=== PATIENT | male | born 1975 | race Caucasian/White ===

== ENCOUNTER 2020-01-01 21:33 | Emergency (ER) | payer MEDICAID, SELFPAY ==
[2020-01-01 22:15] VITALS: BP 148/80; PULSE 81; RESP 18; TEMP 35.7; O2SAT 97; BMI 22.9
--- NOTE | 2020-01-01 23:26 | XR_ITS ---
EXAMINATION: XR HAND, RIGHT CLINICAL INFORMATION: Swelling redness COMPARISON: None TECHNIQUE: Four views of the right hand. FINDINGS: No acute fracture or dislocation. No evidence of bony erosion. No soft tissue air. Alignment is within normal limits. IMPRESSION: No bony finding.
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
[2020-01-02] MEDS: cephALEXin 500 MG CAPSULE PO (00:39)
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
== END 2020-01-02 00:48 | disposition home or self-care (01) ==
PROVIDERS: Emergency Provider Student in an Organized Health Care Education/Training Program
DX: L03.113 Cellulitis of right upper limb (principal); M79.644 Pain in right finger(s); Z79.899 Other long term (current) drug therapy
CPT/HCPCS: 73130; 99283

== ENCOUNTER 2020-01-11 05:42 | Inpatient (IN) | payer MEDICAID, SELFPAY ==
[2020-01-11] VITALS (17 sets, daily range): BP systolic 107–158; BP diastolic 64–90; PULSE 68–107; RESP 16–20; TEMP 36.1–37.3; O2SAT 94–100; BMI 22.9; BMI 22.7
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
--- NOTE | 2020-01-11 06:04 | XR_ITS ---
EXAMINATION: XR HAND, RIGHT CLINICAL INFORMATION: Thumb swelling COMPARISON: Radiographs right hand 01/01/2020 TECHNIQUE: 3 views of the right hand are obtained. FINDINGS: There is mottled lytic defect involving the proximal to mid first distal phalanx with associated fracture. Finding is consistent with a pathologic fracture. The AP view shows metallic foreign body superficial palmar soft tissues from 6 x 10 mm in size. This is not seen on the other 2 views. The other 2 projections show only a bandage over this area. There is no gas tracking in the soft tissues. There is no dislocation. The remainder of the bony structures appear intact. Results called discussed with Dr. Shah in the Emergency Department at 0750 hours. XR/XR hand RT min 3V IMPRESSION: 1. Pathologic fracture first proximal phalanx. 2. Foreign body superficial palmar soft tissues thumb 6 x 10 mm on one projection.
[2020-01-11] MEDS: Lidocaine HCl 1 % 20 ML VIAL SUBCUT ×2 (06:15→12:00)
[2020-01-11] MEDS: Piperacillin Sodium/Tazobactam 4.5 GM in 0.9 % Sodium Chloride 100 ML IV (06:29)
[2020-01-11 06:37] LABS: MANUAL DIFF FLAG NO
[2020-01-11 06:43] LABS: Basophils Absolute Auto 0.1 X10*3/uL (0.0-0.2); Basophils Percent Auto 0.4 % (0-2); Eosinophils Absolute Auto 0.2 X10*3/uL (0.0-0.4); Eosinophils Percent Auto 1.1 % (0-4); Hematocrit 35.7 % (42-52); Hemoglobin 11.7 g/dl (14.0-18.0); Imm Gran Abs Auto 0.11 X10*3/uL (0.00-0.03); Imm Gran Pct Auto 0.8 % (0.0-0.4); Lymphocytes Absolute Auto 1.5 X10*3/uL (1.2-4.9); Mean Corpuscular HGB Conc 32.8 g/dl (31.0-36.0); Mean Corpuscular Hemoglobin 29.3 pg (27.0-33.0); Mean Corpuscular Volume 89.3 fL (80-98); Mean Platelet Volume 8.7 fL (9.4-12.4); Monocytes Absolute Auto 1.3 X10*3/uL (0.1-1.2); Monocytes Percent Auto 10.1 % (2-11); Neutrophils Absolute Auto 10.1 X10*3/uL (2.0-8.3); Neutrophils Percent Auto 76.6 % (45-73); Platelet Count 379 X10*3/uL (160-400); Red Cell Distribution Width 12.8 % (11.0-16.0); White Blood Count 13.2 X10*3/uL (4.8-10.8)
[2020-01-11 07:00] LABS: Lactic Acid 0.9 mmol/L (0.5-2.0)
[2020-01-11 07:02] LABS: Anion Gap 13 (12-20); Blood Urea Nitrogen 11 mg/dL (9-16); Calcium 8.7 mg/dL (8.4-10.2); Carbon Dioxide 30 mmol/L (22-29); Chloride 100 mmol/L (96-108); Creatinine Clr Calc Pharmacy 121.9; Estimated Glomerular Filt Rate > 60; Glucose Random 107 mg/dL (60-115); Potassium 4.3 mmol/l (3.3-5.1); Sodium 139 mmol/L (135-145)
[2020-01-11] MEDS: HYDROmorphone HCl 0.5 MG/0.5 ML SYRINGE IVPUSH (07:04)
[2020-01-11 09:04] LABS: SARS COV2 PCR INHOUSE NEGATIVE (Negative)
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
[2020-01-11] MEDS: vancomycin HCL 1,000 MG in 0.9 % Sodium Chloride 250 ML 180 MG IV (11:39)
--- NOTE | 2020-01-11 11:54 | PC.NURSE ---
Hand physician at bedside. Hopes to get patient in the OR for early afternoon.
[2020-01-11] MEDS: Piperacillin Sodium/Tazobactam 3.375 GM in 0.9 % Sodium Chloride 50 ML IV ×2 (12:56→17:53)
--- NOTE | 2020-01-11 13:45 | PC.NURSE ---
pt arrived to unit via stretcher. alert and oriented x3, amb to bed with no assistance. pt was told that he would be going to surgery at some point in the day around 3pm, but OR transport came to [place] pt shortly he after he arrived to unit. pt insisted on bringing his peters with him to OR, this RN and OR transporter both offered to store pt's peters in the security safe and pt refused stating i dont trust any of you, i'll just take it with me downstairs. all other belongings (clothes, jacket, shoes) in closet in pt room. booking manager SHERRY and clinical coordinator AMIRA mathias.
--- NOTE | 2020-01-11 13:48 | P.CONAN_ITS ---
HPI - Anesthesia Eval Consult details Narrative: 44 M w/ cellulitis pf i&d [facility] Past Medical History Medical History No known health problems Phalanx, proximal fracture of finger Functional capacity: independent ambulation Social History Social History Alcohol intake: former Smoking Status: Current every day smoker Packs Per Day: 0.5 Cigarettes Per Day: 10.0 Smoked in Last 30 Days: Yes Use of substances other than those prescribed or required for medical reasons: Yes Substance Use Type: Painkillers Last Used Substance: Hours (ago) Any prior treatment program specific to substance use: No Advance Directives: No Advance Directives Information Provided: No Meds Allergies Allergy/AdvReac Type Severity Reaction Status Date / Time No Known Allergies Allergy Unverified 12/03/19 19:38 [No Known Allergies*] Exam Exam Date and Time: January 11, 2020 1348 Height,Weight and Vital Signs: Height 5 ft 10 in Weight 72.575 kg Last Vital Signs Temp 98.0 F 01/11/20 12:37 Pulse 90 01/11/20 12:37 Resp 20 01/11/20 12:37 BP 158/84 H 01/11/20 12:37 Pulse Ox 100 01/11/20 12:37 Pertinent Lab Results Pertinent Lab Results: Laboratory Tests 01/11/20 01/11/20 01/11/20 06:24 06:24 06:24 WBC 13.2 H RBC 4.00 L Hgb 11.7 L Hct 35.7 L MCV 89.3 MCH 29.3 MCHC 32.8 RDW 12.8 Plt Count 379 MPV 8.7 L Immature Gran % (Auto) 0.8 H Neut % (Auto) 76.6 H Lymph % (Auto) 11.0 L [place] % (Auto) 10.1 Eos % (Auto) 1.1 Baso % (Auto) 0.4 Lymph # (Auto) 1.5 [place] # (Auto) 1.3 H Eos # (Auto) 0.2 Baso # (Auto) 0.1 Abs Immat Gran (auto) 0.11 H Absolute Neuts (auto) 10.1 H Absolute Nucleated RBC 0.000 Nucleated RBC % (auto) 0.0 Sodium 139 Potassium 4.3 Chloride 100 Carbon Dioxide 30 H Anion Gap 13 BUN 11 Creatinine 0.81 Estim Creat Clear Calc 121.9 Estimated GFR > 60 Random Glucose 107 Lactic Acid 0.9 Calcium 8.7 Coronavirus (PCR) 01/11/20 08:04 WBC RBC Hgb Hct MCV MCH MCHC RDW Plt Count MPV Immature Gran % (Auto) Neut % (Auto) Lymph % (Auto) [place] % (Auto) Eos % (Auto) Baso % (Auto) Lymph # (Auto) [place] # (Auto) Eos # (Auto) Baso # (Auto) Abs Immat Gran (auto) Absolute Neuts (auto) Absolute Nucleated RBC Nucleated RBC % (auto) Sodium Potassium Chloride Carbon Dioxide Anion Gap BUN Creatinine Estim Creat Clear Calc Estimated GFR Random Glucose Lactic Acid Calcium Coronavirus (PCR) NEGATIVE Airway Mallampati Class: I TM Dist: >3cm Neck ROM: Full Loose/Missing/Broken Teeth: No Heart: rrr Lungs: nl Assessment and Plan Assessment Anesthesia Assessment: Anesthesia Plan Discussed, Smoking Cess. Discussed and Chart Reviewed Final Anesthetic Review NPO: Yes ASA Class: II Final Preanesthetic Review: No Changes in Pt Med Stat, Meds/Allgs Chart Reviewed and Consent Obtained/Reviewed Patient Risk: Intermediate Procedure Risk: Low Anesthetic Plan Anesthetic Plan: GA and Regional Block (Infraclavicular) Disposition: Standard PACU
--- NOTE | 2020-01-11 14:19 | PC.NURSE ---
called lab for a type and screen and patient taken to or. recalled lab. lab to draw patient in or. [facility] mathias.
--- NOTE | 2020-01-11 15:26 | P.BOP_ITS ---
Brief Operative Note Date of procedure: 01/11/20 Pre-op diagnosis: 1. Right thumb distal phalanx osteomyelitis, flexor tenosyn ovitis Post-op diagnosis: same Procedure: 1. Right thumb incision and debridement 2. Right distal phalanx fracture and osteomyelitis debridement Implants: drain removed no new implants Surgeon: Alyssia Garza MD Anesthesia: MAC and regional Estimated blood loss (mL): 3.0 Tourniquet time (min): 25 Pathology: other (gramstain and cultures of tissue and bone) Condition: stable Disposition: floor
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
[2020-01-11] MEDS: Dextrose 5 % and 0.9 % NaCl 1,000 ML 100 ML IVCONT (17:57)
[2020-01-11] MEDS: 0.9 % Sodium Chloride Flush 3 ML SYRINGE IVFLUSH (17:57)
--- NOTE | 2020-01-11 18:41 | P.EN_ITS ---
Event Note Event Note: Attending Admission Note Patient seen and examined. Case discussed with Shu Sanchez NP. Agree with her history and physical. Pt seen and examined on the floor post-op this evening. Went to the OR from the ED for thumb infection -- s/p drainage. Remainder per H&P Plan IV vancomcyin/zosyn for now ID consult f/u wound cultures Orthopedic on board -- see their note; may need repeat I&D in a few days. d/w the patient at [facility] -- informed him of the long process ahead of him (at least a few more days in the hospital + 6 weeks iv antibiotics) and not to sign out AMA. He understands at this time.
[2020-01-11] MEDS: vancomycin HCL 1,000 MG in 0.9 % Sodium Chloride 250 ML 270 MG IV (22:59)
[2020-01-12] VITALS (7 sets, daily range): BP systolic 118–144; BP diastolic 60–84; PULSE 70–80; RESP 16–20; TEMP 36.4–36.8; O2SAT 95–100
[2020-01-12] MEDS: Piperacillin Sodium/Tazobactam 3.375 GM in 0.9 % Sodium Chloride 50 ML IV ×4 (00:13→18:48)
[2020-01-12] MEDS: 0.9 % Sodium Chloride Flush 3 ML SYRINGE IVFLUSH ×2 (00:14→16:13)
[2020-01-12] MEDS: Morphine Sulfate 4 MG/ML CARTRIDGE 3 MG IVPUSH ×4 (04:11→20:58)
[2020-01-12] MEDS: Dextrose 5 % and 0.9 % NaCl 1,000 ML 100 ML IVCONT (06:05)
[2020-01-12 06:35] LABS: MANUAL DIFF FLAG NO
[2020-01-12 07:09] LABS: Anion Gap 10 (12-20); Blood Urea Nitrogen 6 mg/dL (9-16); Carbon Dioxide 28 mmol/L (22-29); Chloride 105 mmol/L (96-108); Creatinine Clr Calc Pharmacy 128.9; Estimated Glomerular Filt Rate > 60; Glucose Random 118 mg/dL (60-115); Potassium 4.1 mmol/l (3.3-5.1); Sodium 139 mmol/L (135-145)
[2020-01-12 07:10] LABS: Basophils Percent Auto 0.4 % (0-2); Eosinophils Absolute Auto 0.3 X10*3/uL (0.0-0.4); Eosinophils Percent Auto 2.5 % (0-4); Hematocrit 34.4 % (42-52); Hemoglobin 11.4 g/dl (14.0-18.0); Imm Gran Abs Auto 0.04 X10*3/uL (0.00-0.03); Imm Gran Pct Auto 0.4 % (0.0-0.4); Lymphocytes Absolute Auto 1.9 X10*3/uL (1.2-4.9); Lymphocytes Percent Auto 18.6 % (20-40); Mean Corpuscular HGB Conc 33.1 g/dl (31.0-36.0); Mean Corpuscular Hemoglobin 29.8 pg (27.0-33.0); Mean Corpuscular Volume 89.8 fL (80-98); Mean Platelet Volume 9.1 fL (9.4-12.4); Monocytes Absolute Auto 1.1 X10*3/uL (0.1-1.2); Monocytes Percent Auto 10.2 % (2-11); Neutrophils Percent Auto 67.9 % (45-73); Platelet Count 389 X10*3/uL (160-400); Red Blood Count 3.83 X10*6/uL (4.60-5.80); Red Cell Distribution Width 13.2 % (11.0-16.0); White Blood Count 10.4 X10*3/uL (4.8-10.8)
[2020-01-12 07:24] LABS: Calcium 7.8 mg/dL (8.4-10.2)
[2020-01-12] MEDS: Nicotine 7 MG PATCH.TD24 TRANSDERMA (08:27)
--- NOTE | 2020-01-12 08:32 | HO.POSTANES ---
Post Anesthesia Evaluation Post Anesthesia Evaluation Vital Signs: Vital Signs Temp Pulse Resp BP Pulse Ox 01/12/20 08:00 97.9 F 77 18 126/75 100 01/12/20 04:11 20 01/12/20 04:00 97.5 F 77 18 144/62 H 97 01/11/20 23:53 98 F 68 18 111/64 98 Anesthesia: General Mental Status: Awake Pain Control: Satisfactory (Difficulty contrlooing pain throughoutthe night despite nerve block) Nausea/Vomiting: None Hydration: Adequate Anesthesia-Related Issues: No Anes. Related Issues
[2020-01-12] MEDS: oxyCODONE HCl Immed Release 5 MG TABLET PO ×2 (08:34→18:49)
--- NOTE | 2020-01-12 09:55 | P.PNOP_ITS ---
Subjective Subjective Principal diagnosis: Right thumb osteo/tenosynovitis Interval history: POD 1 s/p I&D right thumb No overnight events, patient states there is some discomfort but feeling better. He has splint intact. He voices his concern about being in the hospital for more than 2-3 days, states if that is the case he may leave. At this point he is cooperative and tolerating medication well. Physical Exam Vital Signs: Vital Signs: Vital Signs Temp Pulse Resp BP Pulse Ox 01/12/20 08:00 97.9 F 77 18 126/75 100 01/12/20 04:11 20 01/12/20 04:00 97.5 F 77 18 144/62 H 97 01/11/20 23:53 98 F 68 18 111/64 98 01/11/20 19:07 98.3 F 91 18 126/78 95 01/11/20 18:06 88 18 140/74 H 100 01/11/20 18:00 97.0 F 88 18 140/74 H 100 01/11/20 17:03 81 16 113/71 94 01/11/20 16:44 77 16 127/82 97 01/11/20 16:20 87 20 129/74 98 01/11/20 16:05 82 19 129/82 98 01/11/20 15:50 84 18 115/69 97 01/11/20 15:45 86 17 110/69 98 01/11/20 15:40 87 17 115/67 97 01/11/20 15:35 71 17 107/70 01/11/20 15:30 97.0 F 76 19 118/71 95 01/11/20 12:37 98.0 F 90 20 158/84 H 100 01/11/20 12:00 98.0 F 90 20 158/84 H 100 Body Mass Index 22.7 Extrem: Other: Right thumb erythema with incision intact with mild serousangenous drainage. Suture intact. Tenderness. Red line tracking just below the antecubital fossa. Progress Note: A&P Assessment and plan (1) Phalanx, proximal fracture of finger: Status: Acute (2) Osteomyelitis: Status: Acute Assessment and Plan: Splint removed and dressing changed. Clean bandage and splint applied. I spoke with Dr. Garza , the plan is to cont with IV abx and have ID consult. Will take to OR tomorrow for f/u I&D, he should be NPO after midnight tonight. (3) Tenosynovitis: Status: Acute Fall Risk Details Current Medications: Current Medications Generic Name Dose Route Start Last Admin Trade Name Freq PRN Reason Stop Dose Admin Acetaminophen 650 mg 01/11/20 15:42 Acetaminophen 325 Mg Tablet PO Q6H PRN Pain, Mild (Pain Scale 1-3) Vancomycin HCl 1,000 mg/ 270 mls @ 180 mls/hr 01/11/20 10:45 01/12/20 00:13 Sodium Chloride IV Infused Q12H LEANDRO Infusion Piperacillin Sod/Tazobactam 50 mls @ 100 mls/hr 01/11/20 12:00 01/12/20 07:41 Sod 3.375 gm/ Sodium Chloride IV Infused Q6H LEANDRO Infusion Dextrose/Sodium Chloride 1,000 mls @ 100 mls/hr 01/11/20 15:42 01/12/20 06:05 D5ns IVCONT 100 mls/hr .Q10H LEANDRO Administration Morphine Sulfate 3 mg 01/11/20 18:44 01/12/20 04:11 Morphine Sulfate 4 Mg/Ml Cartridge IVPUSH 3 mg Q4H PRN Administration Pain, Severe (Pain Scale 7-10) Nicotine 7 mg 01/12/20 09:00 01/12/20 08:27 Nicotine 7 Mg Patch.Td24 TRANSDERMA 7 mg DAILY LEANDRO Administration Ondansetron HCl 4 mg 01/11/20 13:50 Ondansetron Hcl 4 Mg/2 Ml Vial IVPUSH ONCE PRN Nausea and Vomiting Ondansetron HCl 4 mg 01/11/20 15:42 Ondansetron Hcl 4 Mg/2 Ml Vial IVPUSH Q8H PRN Nausea and Vomiting Oxycodone HCl 5 mg 01/11/20 15:42 01/12/20 08:34 Oxycodone Hcl Immed Release 5 Mg Tablet PO 5 mg Q6H PRN Administration Pain, Severe (Pain Scale 7-10) Pharmacy Consult 1 each 01/11/20 15:42 Consult Rx Perform Med Rec MISCELLANE ONCE PRN Consult order Sodium Chloride 3 ml 01/11/20 16:00 01/12/20 08:36 0.9 % Sodium Chloride Flush 3 Ml Syringe IVFLUSH Not Given QSHIFT [facility] Time Spent With Patient Time: Total time spent is greater than 50% in coordination of care (as documented) at patient's floor/unit and/or counseling patient: Time with patient: 15 - 24 minutes
[2020-01-12] MEDS: vancomycin HCL 1,000 MG in 0.9 % Sodium Chloride 250 ML 270 MG IV ×2 (10:26→23:05)
--- NOTE | 2020-01-12 13:01 | MHC.CM.PN ---
CM met with patient at the bedside who reports he lives alone and is independent. Patient does not have a HCP and declines filling one out today after education. Discussed discharge plan, patient will need 6 wks IV ABT. Patient agreeable to referrals to [facility], referrals made via allscripts. Patient and S.O. are teachable. CM will continue to follow patient for discharge needs.
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
[2020-01-12] MEDS: Lactulose 20 GM/30 ML SOLUTION 10 GM PO (16:13)
--- NOTE | 2020-01-12 23:10 | PC.NURSE ---
pt reported no bm for few days. Medicated with lactulose po today, still no bm. Positive BS, passing gas. Pt refused fleet enema. RN reported to dr grimes. Miralax and MOM ordered.
[2020-01-12] MEDS: Milk of Magnesia 30 ML ORAL.SUSP 15 ML PO (23:29)
[2020-01-12] MEDS: polyethylene glycoL 3350 17 GM POWD.PACK PO (23:29)
[2020-01-13] MEDS: Piperacillin Sodium/Tazobactam 3.375 GM in 0.9 % Sodium Chloride 50 ML IV ×2 (00:54→05:36)
[2020-01-13] MEDS: 0.9 % Sodium Chloride Flush 3 ML SYRINGE IVFLUSH (00:54)
[2020-01-13] MEDS: oxyCODONE HCl Immed Release 5 MG TABLET PO (01:19)
[2020-01-13] MEDS: Morphine Sulfate 4 MG/ML CARTRIDGE 3 MG IVPUSH (04:01)
[2020-01-13 07:35] VITALS: BP 128/71; PULSE 57; RESP 18; TEMP 36.2; O2SAT 99
--- NOTE | 2020-01-13 08:34 | MHC.CM.PN ---
at this time dc plan is to return home c vna and coram c iv abx's. cm to cont. to follow.
--- NOTE | 2020-01-13 09:08 | PC.NURSE ---
Patient ambulating towards elevator. This RN reminded patient he is unable to leave floor with IV access in place. Patient agitated, yelling, screaming. Patient states, I am not in longterm i can do whatever i want, you cant tell me what i can do. Patient ran down the stairs in POD C. Security notified. IV access removed by patient, IV found on stairs in staircase. Unable to have patient sign AMA form. notified.
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
--- NOTE | 2020-01-13 15:53 | PM.EVENT ---
Event Note Event Note: discharge diagnosis right thumb osteo /tenosynovitis sepsis/cellulitis status post drainage of abscess by orthopedic surgeon patient left AMA prior to be seen and evaluated by hospitalist team, patient was scheduled to undergo repeat I and D by Orthopedic surgery but left prior to any procedure.
== END 2020-01-13 08:15 | disposition left against medical advice (07) | DRG 710 ==
LOC: HO.ED 09:30 → HO.IMC 11:25
PROVIDERS: Nurse Practitioner Acute Care; Orthopaedic Surgery; Admitting Provider Family Medicine; Emergency Provider Emergency Medicine Emergency Medical Services; Visit Provider Hospitalist
PROC: 0PBT0ZZ Excision of Right Finger Phalanx, Open Approach (ICD-10-PCS; principal; 2020-01-11 14:40)
DX: A41.9 Sepsis, unspecified organism (principal); M86.9 Osteomyelitis, unspecified; L02.511 Cutaneous abscess of right hand; L03.011 Cellulitis of right finger; M65.9 Synovitis and tenosynovitis, unspecified; S62.521 Displaced fracture of distal phalanx of right thumb; V49.9XXD Car occupant (driver) (passenger) injured in unspecified traffic accident, subsequent encounter; F17.210 Nicotine dependence, cigarettes, uncomplicated; Z71.6 Tobacco abuse counseling; Z20.828 Contact with and (suspected) exposure to other viral communicable diseases; Z79.891 Long term (current) use of opiate analgesic; Z79.899 Other long term (current) drug therapy
CPT/HCPCS: 36415; 73130; 80048; 83605; 85025; 86850; 86900; 86901; 87040; 87071; 87147; 87186; 87205; 87635; 90471; 90715; 96365; 96375; 99222; 99285; J1170; J2250; J2270; J2543; J3370

== ENCOUNTER 2020-01-13 12:52 | Inpatient (IN) | payer MEDICAID, SELFPAY ==
--- NOTE | 2020-01-13 13:43 | XR_ITS ---
EXAMINATION: XR ABDOMEN KUB CLINICAL INDICATION: Constipation, no bowel movement in 5 days. COMPARISON: None TECHNIQUE: AP x2 views of the abdomen. FINDINGS: There is moderate stool throughout the colon, greatest right and transverse colon and rectosigmoid. Rectosigmoid distention is 6.8 cm in diameter. There is no gaseous dilatation of bowel or abnormal collections of gas. No visible urinary tract calculi. No acute bony abnormality. Visualized lung bases are clear. XR/XR KUB IMPRESSION: Moderate stool throughout colon, constipation. No gaseous dilatation of bowel or abnormal collections of gas.
[2020-01-13 13:44] VITALS: BP 112/67; PULSE 104; RESP 22; O2SAT 95; BMI 22.9
[2020-01-13 14:11] LABS: MANUAL DIFF FLAG NO
[2020-01-13 14:13] LABS: Basophils Percent Auto 0.2 % (0-2); Eosinophils Absolute Auto 0.1 X10*3/uL (0.0-0.4); Eosinophils Percent Auto 0.9 % (0-4); Hematocrit 37.1 % (42-52); Hemoglobin 12.2 g/dl (14.0-18.0); Imm Gran Abs Auto 0.01 X10*3/uL (0.00-0.03); Imm Gran Pct Auto 0.1 % (0.0-0.4); Lymphocytes Absolute Auto 0.9 X10*3/uL (1.2-4.9); Lymphocytes Percent Auto 10.4 % (20-40); Mean Corpuscular HGB Conc 32.9 g/dl (31.0-36.0); Mean Corpuscular Hemoglobin 29.5 pg (27.0-33.0); Mean Corpuscular Volume 89.6 fL (80-98); Mean Platelet Volume 8.4 fL (9.4-12.4); Monocytes Absolute Auto 0.6 X10*3/uL (0.1-1.2); Neutrophils Absolute Auto 6.9 X10*3/uL (2.0-8.3); Neutrophils Percent Auto 81.4 % (45-73); Platelet Count 426 X10*3/uL (160-400); Red Blood Count 4.14 X10*6/uL (4.60-5.80); White Blood Count 8.5 X10*3/uL (4.8-10.8)
--- NOTE | 2020-01-13 14:28 | PC.NURSE ---
PT TRIAGED C/O need for abx for wound of R thumb. Seen here this AM for same issue, given Zosyn this AM, left after he lost it over constipation and feeling generally frustrated at medical issues. Two surgical incisions on R thub, appears infected, dark edges, swollen. Assessed by PA. Was supposed to undergo surgical repair of thub today, will likely undergo tomorrow as he reports having eaten food today.
[2020-01-13 14:33] LABS: Anion Gap 13 (12-20); Blood Urea Nitrogen 6 mg/dL (9-16); Calcium 8.1 mg/dL (8.4-10.2); Carbon Dioxide 25 mmol/L (22-29); Chloride 103 mmol/L (96-108); Creatinine Clr Calc Pharmacy 131.7; Estimated Glomerular Filt Rate > 60; Glucose Random 104 mg/dL (60-115); Potassium 4.3 mmol/l (3.3-5.1); Sodium 137 mmol/L (135-145)
[2020-01-13] MEDS: vancomycin HCL 750 MG in 0.9 % Sodium Chloride 250 ML 265 MG IV (15:07)
--- NOTE | 2020-01-13 15:33 | ED_ITS ---
HPI - Wound/Laceration General Chief Complaint: Wound/Laceration Stated Complaint: infection Time Seen by Provider: 01/13/20 13:21 Source: patient Mode of arrival: ambulatory History of Present Illness HPI narrative: 44-year-old male with a PMHx of right thumb osteo/tenosynovitis/distal phalanx fracture returning to ED after signing out A MA this morning. Patient had OR I&D by orthopedics on 01/11/20 and was admitted to hospital, receiving IV antibiotics, scheduled for follow-up I&D with orthopedics this morning however left AMA. Reports returning to ED for admission for scheduled procedure and proper antibiotics. Reports continued pain, and constipation. Reports has not had a BM in 5 days. Admits to passing flatus. Reports lower abdominal discomfort. Denies fever, chills Onset (ago): day(s) Related Data Home Medications Medication Instructions Recorded Confirmed No Known Home Meds 01/11/20 01/11/20 Allergies Allergy/AdvReac Type Severity Reaction Status Date / Time No Known Allergies Allergy Verified 01/11/20 14:04 [No Known Allergies*] Review of Systems Review of Systems: Constitutional: No Weight loss, No Fever, No Chills Gastrointestinal: No Nausea, No Vomiting, No Diarrhea, + Constipation, +Abdominal pain Musculoskeletal: +oint pain, No Myalgias, + Joint Swelling Skin: No Skin Lesions, No rash Neuro: No Weakness, No Numbness Yes all other systems are reviewed and are negative [facility] Past Medical History Attestation statement: The following information was validated with the patient. Medical History No known health problems Phalanx, proximal fracture of finger Social History Social History Alcohol intake: former Smoking Status: Light tobacco smoker Packs Per Day: 0.5 Cigarettes Per Day: 10.0 Substance Use Type: Marijuana Advance Directives: No Advance Directives Information Provided: No service: No Current occupational status: employed Physical Exam Vital Signs: Vital Signs: Vital Signs Pulse Resp BP Pulse Ox 01/13/20 15:53 89 18 107/71 99 01/13/20 13:44 104 H 22 H 112/67 95 Body Mass Index 22.9 Const: General: cooperative and healthy appearing Orientation/consciousness: patient oriented x3 Limitations: no limitations HENMT: Head: Yes normal to inspection Ears: hearing grossly normal bilaterally General nose exam: Normal external nose present Face and sinus: Yes normal facial exam Eyes: General: appearance normal, both eyes and all related structures EOM: EOMs intact bilaterally Neck: Neck: Yes normal visual inspection Resp: Effort & Inspection: normal respiratory effort Cardio: Peripheral pulses: radial pulses present GI: Inspection: Yes normal to inspection Palpation (GI): Soft to palpation, Tenderness to palpation present (GI) ( lower abdomen), no guarding and not rigid Neuro: General: patient oriented x3 Gait exam (Neuro): Normal gait present Extrem: Other: splint intact to RUE > removed, right thumb with swelling /erythema, two sutures in place. +ttp. no appreciable drainage /fluctuance or induration. Red line tracking to antecubital fossa Course Course Course Narrative: - labs unremarkable - KUB showing moderate stool throughout the colon, constipation, no evidence of obstruction - patient admitted to orthopedic service MDM - Wound/Laceration MDM Narrative Medical decision making narrative: 44-year-old male with a PMHx of right thumb osteo/tenosynovitis/distal phalanx fracture returning to ED after signing out AMA this morning. On exam mildly tachycardic, splint intact, removed with surgical site clean/appropriately healing then splint replaced. Contacted orthopedic MEGHANA Perry, aware patient is in ED, will admit, plan to go to OR [facility] for previously scheduled surgery. rule out SBO. Low concern for severe sepsis Plan: Repeat labs, KUB, IV vanc as cultures susceptible to vancomycin, admission Lab Data Result diagrams: 01/13/20 14:06 01/13/20 14:06 Labs: Lab Results 01/13/20 01/13/20 01/13/20 Range/Units 14:06 14:06 14:06 WBC 8.5 (4.8-10.8) X10*3/uL RBC 4.14 L (4.60-5.80) X10*6/uL Hgb 12.2 L (14.0-18.0) g/dl Hct 37.1 L (42-52) % MCV 89.6 (80-98) fL MCH 29.5 (27.0-33.0) pg MCHC 32.9 (31.0-36.0) g/dl RDW 13.0 (11.0-16.0) % Plt Count 426 H (160-400) X10*3/uL MPV 8.4 L (9.4-12.4) fL Immature Gran % (Auto) 0.1 (0.0-0.4) % Neut % (Auto) 81.4 H (45-73) % Lymph % (Auto) 10.4 L (20-40) % Fajardo % (Auto) 7.0 (2-11) % Eos % (Auto) 0.9 (0-4) % Baso % (Auto) 0.2 (0-2) % Lymph # (Auto) 0.9 L (1.2-4.9) X10*3/uL [place]ardo # (Auto) 0.6 (0.1-1.2) X10*3/uL Eos # (Auto) 0.1 (0.0-0.4) X10*3/uL Baso # (Auto) 0.0 (0.0-0.2) X10*3/uL Abs Immat Gran (auto) 0.01 (0.00-0.03) X10*3/uL Absolute Neuts (auto) 6.9 (2.0-8.3) X10*3/uL Absolute Nucleated RBC 0.000 (0.0-0.012) X10*3/uL Nucleated RBC % (auto) 0.0 (0.0-0.2) /100WBC Hold Blue Top SEE NOTE Sodium 137 (135-145) mmol/L Potassium 4.3 (3.3-5.1) mmol/l Chloride 103 (96-108) mmol/L Carbon Dioxide 25 (22-29) mmol/L Anion Gap 13 (12-20) BUN 6 L (9-16) mg/dL Creatinine 0.75 (0.5-1.4) mg/dL Estim Creat Clear Calc 131.7 Estimated GFR > 60 Random Glucose 104 (60-115) mg/dL Calcium 8.1 L (8.4-10.2) mg/dL Discharge Plan Discharge Clinical Impression: Phalanx, proximal fracture of finger, Cellulitis Patient Disposition: Admitted As Inpatient
[2020-01-13 15:53] VITALS: BP 107/71; PULSE 89; RESP 18; O2SAT 99
--- NOTE | 2020-01-13 15:53 | PC.NURSE ---
Jonas hernandez. med rec complete.
[2020-01-13 16:14] VITALS: BP 97/73; PULSE 85; RESP 20; TEMP 37; O2SAT 99
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
[2020-01-13] MEDS: Milk of Magnesia 30 ML ORAL.SUSP PO (19:09)
[2020-01-13] MEDS: oxyCODONE HCl Immed Release 5 MG TABLET 10 MG PO (19:10)
--- NOTE | 2020-01-13 19:45 | PC.NURSE ---
x1 attempt to give report
[2020-01-13 20:01] LABS: SARS COV2 PCR INHOUSE NEGATIVE (Negative)
--- NOTE | 2020-01-13 20:26 | PC.NURSE ---
report given to virginia bucio on med surg
[2020-01-13 21:10] VITALS: BP 125/72; PULSE 80; RESP 19; TEMP 36.7; O2SAT 97
--- NOTE | 2020-01-13 21:40 | MHC.CARE ---
CARE team received consult for this patient upon transfer from ED to [facility] room 372-1 for history of substance use. Due to late hour, recent transfer, and need for other staff to complete tasks (admission etc) CARE team made plan to check in with patient tomorrow.
[2020-01-13] MEDS: Docusate Sodium 100 MG CAPSULE PO (22:35)
[2020-01-13 23:42] VITALS: BP 126/74; PULSE 71; RESP 16; TEMP 36.8; O2SAT 99
[2020-01-14] VITALS (12 sets, daily range): BP systolic 110–135; BP diastolic 65–80; PULSE 66–102; RESP 16–20; TEMP 36.1–37.1; O2SAT 97–100; BMI 23.7
[2020-01-14] MEDS: oxyCODONE HCl Immed Release 5 MG TABLET 10 MG PO ×2 (00:18→08:40)
--- NOTE | 2020-01-14 07:24 | PC.NURSE ---
call placed to pharmacist for assistance with vancomycin order, oredered in 500ml ns, iv pump not programmed for that amount, should be in 250ml. dose, hung as ordered and pharmacist will notify hospitalist team to check if that is how they want it, or restart wuth 250ml. 7-3 rn alerted to possible change after call back.
--- NOTE | 2020-01-14 07:29 | PC.NURSE ---
pharmacist called unit after speaking to hospitalist, okay to infuse this am dose as 500ml, thereafter, will change order to 250ml ns, am RN made aware at this time
[2020-01-14] MEDS: Docusate Sodium 100 MG CAPSULE PO ×2 (08:40→19:10)
[2020-01-14 09:06] LABS: MANUAL DIFF FLAG NO
[2020-01-14 09:22] LABS: Basophils Percent Auto 0.3 % (0-2); Eosinophils Absolute Auto 0.1 X10*3/uL (0.0-0.4); Eosinophils Percent Auto 0.6 % (0-4); Hematocrit 39.2 % (42-52); Hemoglobin 12.9 g/dl (14.0-18.0); Imm Gran Abs Auto 0.03 X10*3/uL (0.00-0.03); Imm Gran Pct Auto 0.3 % (0.0-0.4); Lymphocytes Absolute Auto 1.4 X10*3/uL (1.2-4.9); Lymphocytes Percent Auto 13.5 % (20-40); Mean Corpuscular HGB Conc 32.9 g/dl (31.0-36.0); Mean Corpuscular Hemoglobin 29.3 pg (27.0-33.0); Mean Corpuscular Volume 88.9 fL (80-98); Mean Platelet Volume 8.5 fL (9.4-12.4); Monocytes Absolute Auto 0.5 X10*3/uL (0.1-1.2); Neutrophils Absolute Auto 8.3 X10*3/uL (2.0-8.3); Neutrophils Percent Auto 80.3 % (45-73); Platelet Count 478 X10*3/uL (160-400); Red Blood Count 4.41 X10*6/uL (4.60-5.80); Red Cell Distribution Width 12.9 % (11.0-16.0); White Blood Count 10.3 X10*3/uL (4.8-10.8)
[2020-01-14 09:45] LABS: Anion Gap 12 (12-20); Blood Urea Nitrogen 7 mg/dL (9-16); Calcium 8.4 mg/dL (8.4-10.2); Carbon Dioxide 27 mmol/L (22-29); Chloride 105 mmol/L (96-108); Creatinine Clr Calc Pharmacy 133.4; Estimated Glomerular Filt Rate > 60; Glucose Random 104 mg/dL (60-115); Potassium 4.5 mmol/l (3.3-5.1); Sodium 139 mmol/L (135-145)
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
[2020-01-14 10:37] LABS: Amphetamine Screen Urine Not Detected (Not Detect); Barbiturates, Urine Not Detected (Not Detect); Benzodiazepines Screen Urine Not Detected (Not Detect); Cannabinoid Screen Urine POSITIVE (Not Detect); Cocaine Screen Urine Not Detected (Not Detect); Opiate Screen Urine POSITIVE (Not Detect); Phencyclidine Screen Urine Not Detected (Not Detect)
--- NOTE | 2020-01-14 12:53 | PM.OP ---
Brief Operative Note Date of procedure: 01/14/20 Pre-op diagnosis: 1. Right thumb infection, flexor tenosynovitis 2. Right thumb distal phalanx osteomyelitis 3. Right thumb distal phalanx fracture delayed union Post-op diagnosis: same Procedure: 1. Right thumb irrigation and debridement of flexor tendon sheath and soft tissues 2. Right thumb irrigation and debridement of distal phalanx osteomyeltis Implants: none Surgeon: Alyssia Garza MD Anesthesia: MAC and regional Estimated blood loss (mL): 2.0 Tourniquet time (min): 0 Pathology: none sent Condition: stable Disposition: floor
[2020-01-14 15:07] LABS: Vancomycin Trough 12.3 mcg/mL (10.0-20.0)
--- NOTE | 2020-01-14 15:19 | W.PM.OPN ---
Operative Note Operative Note Narrative: Pre-op Dx: Right thumb infection and Distal phalanx osteomyelitis Post op Dx: same Procedures: 1. Right thumb I&D of flexor tendon sheath and soft tissues 2. Right thumb distal phalanx I&D Surgeon: Alyssia Garza MD\ Anesthesia: regional plus MAC Findings: gross purulence much improved. only minimal serosanguinous appearing drainage. Significant soft tissue injury to volar aspect of pad of thumb secondary to infecion. + Bone loss in volar aspect of distal phalanx secondary to osteomyelitis, with gross motion through fracture at base of distal phalanx. Flexor tendon partially intact at base of distal phalanx. Lymphangitis much improved, nearly resolved. TT: none Blood loss: minimal Implants: none Plan: Admit back to floor for IV Vancomycin. Pt with +MRSA also sensitive to Bactrim ID Consult for osteomyelitis in patient with difficulty with compliance with medical advice Distal Phalanx fracture will be managed conservatively until eradication of infection. No pinching against thumb. OT consult for wound care and close follow up. Will likely benefit from custom hand based thermoplastic splint to tip of thumb by OT once past early treatment of infection. The patient was counselled about the importance of taking his antibiotics per ID recommendations for approximately 6-8 weeks, and following our medical advice. Procedure: Once consent was obtained a regional block and MAC anesthesia were performed by the anesthesia team. The patient was supine on the OR table. A tourniquet was applied to the proximal aspect of the Right UE and the limb was sterilely prepped and draped. The tqt was not inflated. Sutures were removed. The nonviable skin and tissue was carefully debrided from the thumb using a #15 blade, tenotomy scissors and a rongeur. +small amount of serosanguinous drainage, no gross pus. Flexor tendon partially intact at the base of the distal phalanx. Volar bone loss still present throughout volar surface for DP, with gross motion at fracture site. The wound was copiously irrigated with normal saline. There is a significant soft tissue defect in the volar pad of the thumb caused by this infection. It measures approximately 1.8cm x 6 mm. Once satisfied with our I&D, the skin edges were loosely reapproximated using some 4.0 nylon suture. He may develop an eschar at about the IP flexion crease, however I am hopeful that if this wound will heal we may be able to avoid need for further procedures for coverage. A sterile dressing and thumb spica splint were placed. He appears to have tolerated the procedure well and with no complications. All digits were well vascularized at the conclusion of the case.
[2020-01-14] MEDS: vancomycin HCL 1,000 MG in 0.9 % Sodium Chloride 250 ML 180 MG IV (16:46)
[2020-01-14] MEDS: Acetaminophen 325 MG TABLET PO (19:09)
[2020-01-14] MEDS: oxyCODONE HCl Immed Release 5 MG TABLET PO (19:11)
[2020-01-15] VITALS: BP 136/71; PULSE 75; RESP 77; TEMP 36.7
[2020-01-15] MEDS: vancomycin HCL 1,000 MG in 0.9 % Sodium Chloride 250 ML 180 MG IV ×2 (01:50→09:11)
[2020-01-15] MEDS: Acetaminophen 325 MG TABLET PO ×3 (01:58→11:23)
[2020-01-15] MEDS: oxyCODONE HCl Immed Release 5 MG TABLET PO ×3 (01:59→11:22)
[2020-01-15 04:58] VITALS: BP 117/69; PULSE 64; RESP 16; TEMP 36.7; O2SAT 98
[2020-01-15 06:17] LABS: MANUAL DIFF FLAG NO
[2020-01-15 06:43] LABS: Basophils Percent Auto 0.3 % (0-2); Eosinophils Absolute Auto 0.1 X10*3/uL (0.0-0.4); Eosinophils Percent Auto 1.2 % (0-4); Hematocrit 34.8 % (42-52); Hemoglobin 11.6 g/dl (14.0-18.0); Imm Gran Abs Auto 0.05 X10*3/uL (0.00-0.03); Imm Gran Pct Auto 0.5 % (0.0-0.4); Lymphocytes Absolute Auto 2.9 X10*3/uL (1.2-4.9); Lymphocytes Percent Auto 27.3 % (20-40); Mean Corpuscular HGB Conc 33.3 g/dl (31.0-36.0); Mean Corpuscular Hemoglobin 29.4 pg (27.0-33.0); Mean Corpuscular Volume 88.1 fL (80-98); Mean Platelet Volume 8.4 fL (9.4-12.4); Monocytes Absolute Auto 0.9 X10*3/uL (0.1-1.2); Monocytes Percent Auto 8.9 % (2-11); Neutrophils Absolute Auto 6.5 X10*3/uL (2.0-8.3); Neutrophils Percent Auto 61.8 % (45-73); Platelet Count 437 X10*3/uL (160-400); Red Blood Count 3.95 X10*6/uL (4.60-5.80); Red Cell Distribution Width 12.8 % (11.0-16.0); White Blood Count 10.5 X10*3/uL (4.8-10.8)
[2020-01-15 08:00] VITALS: BP 127/66; PULSE 80; RESP 20; TEMP 36.6; O2SAT 100
[2020-01-15 08:45] LABS: Vancomycin Trough 14.2 mcg/mL (10.0-20.0)
[2020-01-15] MEDS: Docusate Sodium 100 MG CAPSULE PO (09:11)
--- NOTE | 2020-01-15 09:40 | MHC.CM.PN ---
Male 44 DX Osteo rt thumb. Pt lives alone. He is independent all functional mobility . DP home no services family transport.
--- NOTE | 2020-01-15 09:49 | MHC.CARE ---
Addiction Consult Service note: Patient is a 44 year old Faroese speaking male who was admitted to [facility] due to an infection. Patient vehemently denies having a history of substance use, reports the only substance he uses is cannabis. Patient reports that he doesn't like downers and that he may have used some cocaine years ago but that he avoids all drugs besides cannabis. Patient went on to say that due to the intense pain he has been dealing with due to his fracture and infection, he resorted to buying Percocet off the street to manage the pain. Patient reports he did not like taking them however he felt the pain was unbearable. Patient educated on the risk inherent in buying street drugs and patient acknowledges that he should have came to the hospital sooner. Discussed case with patient's RN, Albertina.
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
[2020-01-15 11:46] VITALS: BP 114/72; PULSE 79; RESP 20; TEMP 36.7; O2SAT 95
--- NOTE | 2020-01-15 13:35 | HO.POSTANES ---
Post Anesthesia Evaluation Post Anesthesia Evaluation Vital Signs: Vital Signs Temp Pulse Resp BP Pulse Ox 01/15/20 11:46 98.1 F 79 20 114/72 95 01/15/20 08:00 97.9 F 80 20 127/66 100 01/15/20 04:58 98.0 F 64 16 117/69 98 Anesthesia: Nerve Block and General LMA Mental Status: Awake Pain Control: Satisfactory Nausea/Vomiting: None Hydration: Adequate Anesthesia-Related Issues: No Anes. Related Issues (Patient already discharged. Attempted to contact by phone. No response. No apparent anesthetic complications.)
== END 2020-01-15 12:30 | disposition home or self-care (01) | DRG 850 ==
LOC: HO.ED 15:53 → HO.S3 19:48
PROVIDERS: Orthopaedic Surgery; Physician Assistant; Admitting Provider Internal Medicine; Emergency Provider Internal Medicine; PCP Internal Medicine; Visit Provider Hospitalist
PROC: 0PBR0ZZ Excision of Right Thumb Phalanx, Open Approach (ICD-10-PCS; principal; 2020-01-14 11:00)
DX: S62.521 Displaced fracture of distal phalanx of right thumb (principal); M86.9 Osteomyelitis, unspecified; M65.9 Synovitis and tenosynovitis, unspecified; B95.62 Methicillin resistant Staphylococcus aureus infection as the cause of diseases classified elsewhere; V49.9XXD Car occupant (driver) (passenger) injured in unspecified traffic accident, subsequent encounter; M65.841 Other synovitis and tenosynovitis, right hand; Z20.828 Contact with and (suspected) exposure to other viral communicable diseases; Z79.890 Hormone replacement therapy; Z79.899 Other long term (current) drug therapy
CPT/HCPCS: 36415; 74018; 80048; 80202; 80307; 85025; 87635; 96365; 99284; 99285; J1100; J2250; J3370

== ENCOUNTER 2020-03-21 08:31 | Outpatient (REF) | payer MEDICAID, SELFPAY ==
--- NOTE | 2020-03-21 09:13 | XR_ITS ---
EXAMINATION: XR HAND, RIGHT CLINICAL INFORMATION: M79.641 - Pain in right hand COMPARISON: Radiographs right hand 01/11/2020, 01/01/2020 TECHNIQUE: 5 views of the right hand. FINDINGS: There is irregularity of the soft tissues palmar side distal from. There is no gas tracking proximally in the soft tissues or visible radiopaque soft tissue foreign body. There is interval healing of the first distal phalanx fracture. Scalloped defect palmar side of the fracture site is seen in the area of prior osseous lucency. There is no interval destructive process or periostitis. No articular or periarticular erosive changes. XR/XR hand RT min 3V IMPRESSION: Healing fracture right first distal phalanx.
== END 2020-03-21 08:32 | disposition home or self-care (01) ==
LOC: HO.HOSX 08:31
PROVIDERS: Visit Provider Orthopaedic Surgery
DX: M86.9 Osteomyelitis, unspecified (principal); S62.524 Nondisplaced fracture of distal phalanx of right thumb
CPT/HCPCS: 73130; 99212

== ENCOUNTER 2020-06-13 10:13 | Emergency (ER) | payer MEDICAID, SELFPAY ==
[2020-06-13 10:33] VITALS: BP 120/78; PULSE 92; RESP 18; TEMP 36.7; O2SAT 99; BMI 22.9
--- NOTE | 2020-06-13 10:36 | ED.PSYCH ---
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 He has been off medications for his bipolar for a long time. He did not like the way it made him feel. He used to have a therapist who helped him through manic episodes but he has not been speaking with a therapist in a long time either. He reports last week all of his accounts were hacked, including his bank and phone accounts. He noticed people following him. He stopped sleeping at his apartment and has been staying at his mother's house because of the people following him. He promised his sister and his mother he would come to the ER to seek some help and to get back on track. He denies SI, AH, and VH. He reports the only drug he uses is marijuana. <MEGHANA Tan - Last Filed: 06/13/20 13:20> MD complaint: anxiety <MEGHANA Tan - Last Filed: 06/13/20 13:20> Onset (ago): day(s) (7) <MEGHANA Tan - Last Filed: 06/13/20 13:20> Duration: constant <MEGHANA Tan - Last Filed: 06/13/20 13:20> History of same: Yes <MEGHANA Tan - Last Filed: 06/13/20 13:20> Relieving factors: therapy <MEGHANA Tan Last Filed: 06/13/20 13:20> Exacerbating factors: none <MEGHANA Tan Last Filed: 06/13/20 13:20> Context: not taking psychiatric medications <MEGHANA Tan Last Filed: 06/13/20 13:20> Associated psychiatric symptoms: racing thoughts and delusions <MEGHANA Tan Last Filed: 06/13/20 13:20> Associated symptoms: denies other symptoms <MEGHANA Tan Last Filed: 06/13/20 13:20> Treatments prior to arrival: none <MEGHANA Tan Last Filed: 06/13/20 13:20> Related Data Home Medications: Previous Rx's Medication Instructions Recorded acetaminophen 325 mg PO Q4H PRN 30 Days #240 tab 01/15/20 docusate sodium 100 mg PO BID 30 Days #60 cap 01/15/20 oxycodone 5 mg PO Q4H PRN 7 Days #42 tab 01/15/20 sulfamethoxazole-trimethoprim 1 tab PO Q12H 60 Days #120 tab 01/15/20 [Bactrim DS] <MEGHANA Tan Last Filed: 06/13/20 13:20> Allergies/Adverse Reactions: Allergies Allergy/AdvReac Type Severity Reaction Status Date / Time No Known Allergies Allergy Verified 01/11/20 14:04 [No Known Allergies*] <MEGHANA Tan Last Filed: 06/13/20 13:20> Review of Systems Review of Systems: Constitutional: No Fever, No Chills Cardiovascular: No Chest Pain, No SOB Respiratory: No Cough, No Sputum Gastrointestinal: No Nausea, No Vomiting, No Diarrhea, No abdominal Pain Genitourinary: No Dysuria, No Urinary Frequency, No Hematuria Musculoskeletal: No joint pain, No Myalgias Skin: No Skin Lesions, No rash Neuro: No Weakness, No Numbness, No Dizziness, No Headache Psych: + Anxiety/Panic, No Depression Heme/Lymph: No Bruising, No Lymphadenopathy Endocrine: No Polyuria, No Polydipsia <MEGHANA Tan Last Filed: 06/13/20 13:20> PMFSH Past Medical History Attestation statement: The following information was validated with the patient. <MEGHANA Tan - Last Filed: 06/13/20 13:20> Medical History: Medical History No known health problems Phalanx, proximal fracture of finger <MEGHANA Tan - Last Filed: 06/13/20 13:20> Surgical History: Surgical History (Updated 01/21/20 @ 00:00 by Collins Armas) Status post debridement <MEGHANA Tan - Last Filed: 06/13/20 13:20> Social History Social History: Social History (Updated 01/14/20 @ 10:17 by MEGHANA Koo) Household Members: None Housing: House Alcohol intake: former Smoking Status: Light tobacco smoker Tobacco Type: Cigarette Packs Per Day: 0.5 Cigarettes Per Day: 10.0 Second Hand Smoke Exposure: No Substance Use Type: Marijuana Advance Directives: Yes Advance Directives Information Provided: No Advance Directives on File: No service: No Current occupational status: employed and other <MEGHANA Tan - Last Filed: 06/13/20 13:20> Physical Exam Vital Signs: Vital Signs: Last Vital Signs Temp 98.1 F 06/13/20 10:33 Pulse 92 06/13/20 10:33 Resp 18 06/13/20 10:33 BP 120/78 06/13/20 10:33 Pulse Ox 99 06/13/20 10:33 Body Mass Index 22.9 Appearance: Alert. Oriented X3. No acute distress. Eyes: Pupils equal, round and reactive to light. ENT: Pharynx normal. Neck: Normal inspection. Neck supple. CVS: Normal heart rate and rhythm. Pulses normal. Respiratory: No respiratory distress. Breath sounds normal. Abdomen: Soft and nontender. +BS x4 Skin: Skin warm and dry. Normal skin color. Normal skin turgor. No rashes. Extremities: No lower extremity edema. Neuro/Psych: Oriented X 3. No motor deficit. No sensory deficit. Speaks in full sentences, good insight, somewhat disorganized thoughts, no SI, no VH/AH <MEGHANA Tan - Last Filed: 06/13/20 13:20> Vital Signs: Last Vital Signs Temp 98.1 F 06/13/20 10:33 Pulse 92 06/13/20 10:33 Resp 18 06/13/20 10:33 BP 120/78 06/13/20 10:33 Pulse Ox 99 06/13/20 10:33 Body Mass Index 22.9 <Phong Bates MD - Last Filed: 07/01/20 13:29> Course Course Course Narrative: 44 y/o male presenting with paranoia, anxiety in the setting of untreated bipolar disorder. Here voluntarily. Wanting to get help for his bipolar, he has no resources in the community. Will get basic lab workup, utox and have [facility] see him as well as Psych for medication recommendations. <MEGHANA Tan - Last Filed: 06/13/20 13:20> I have reviewed the chart <Phong Bates MD - Last Filed: 07/01/20 13:29> Reevaluation(s) Reevaluation #1: 12:35pm - Patient wanting to leave. He feels like he is in penitentiary and he is being kept here against his will. He is being spoken to by the [facility] steamer tender at this time to help arrange some outpatient resources. Encouraged to wait to be seen by Psych but patient is refusing. He is not suicidal or a threat to himself or others. He is stable for discharge. <MEGHANA Tan - Last Filed: 06/13/20 13:20> MDM - Psych Lab Data Result diagrams: : 06/13/20 11:42 06/13/20 11:42 <MEGHANA Tan - Last Filed: 06/13/20 13:20> Labs: Lab Results 06/13/20 06/13/20 06/13/20 Range/Units 11:01 11:01 11:42 WBC 5.2 (4.8-10.8) X10*3/uL RBC 4.16 L (4.60-5.80) X10*6/uL Hgb 12.6 L (14.0-18.0) g/dl Hct 37.7 L (42-52) % MCV 90.6 (80-98) fL MCH 30.3 (27.0-33.0) pg MCHC 33.4 (31.0-36.0) g/dl RDW 13.9 (11.0-16.0) % Plt Count 308 D (160-400) X10*3/uL MPV 8.5 L (9.4-12.4) fL Immature Gran % (Auto) 0.4 (0.0-0.4) % Neut % (Auto) 51.6 (45-73) % Lymph % (Auto) 35.5 (20-40) % [place] % (Auto) 10.0 (2-11) % Eos % (Auto) 1.5 (0-4) % Baso % (Auto) 1.0 (0-2) % Lymph # (Auto) 1.8 (1.2-4.9) X10*3/uL [place] # (Auto) 0.5 (0.1-1.2) X10*3/uL Eos # (Auto) 0.1 (0.0-0.4) X10*3/uL Baso # (Auto) 0.1 (0.0-0.2) X10*3/uL Abs Immat Gran (auto) 0.02 (0.00-0.03) X10*3/uL Absolute Neuts (auto) 2.7 (2.0-8.3) X10*3/uL Absolute Nucleated RBC 0.000 (0.0-0.012) X10*3/uL Nucleated RBC % (auto) 0.0 (0.0-0.2) /100WBC Sodium (135-145) mmol/L Potassium (3.3-5.1) mmol/L Chloride (96-108) mmol/L Carbon Dioxide (22-29) mmol/L Anion Gap (12-20) BUN (9-16) mg/dL Creatinine (0.5-1.4) mg/dL Estim Creat Clear Calc Estimated GFR Random Glucose (60-115) mg/dL Calcium (8.4-10.2) mg/dL Magnesium (1.6-2.6) mg/dL Total Bilirubin (0.0-1.0) mg/dL Direct Bilirubin (0.0-0.5) mg/dL AST (5-37) U/L ALT (0-40) U/L Alkaline Phosphatase (39-117) U/L Total Protein (6.5-8.0) g/dL Albumin (3.5-5.0) g/dL Urine Color YELLOW Urine Appearance CLEAR Urine pH 7.0 (5.0-8.0) Ur Specific [place] 1.020 (1.005-1.025) Urine Protein NEG (NEG-TRACE) MG/DL Urine Glucose (UA) NEG (NEG) MG/DL Urine Ketones NEG (NEG) MG/DL Urine Blood NEG (NEG) Urine Nitrite NEG (NEG) Ur Leukocyte Esterase NEG (NEG) Urine Opiates Screen Not Detected (Not Detect) Ur Barbiturates Screen Not Detected (Not Detect) Ur Phencyclidine Scrn Not Detected (Not Detect) Ur Amphetamines Screen Not Detected (Not Detect) U Benzodiazepines Scrn Not Detected (Not Detect) Urine Cocaine Screen Not Detected (Not Detect) U Marijuana (THC) Screen POSITIVE H (Not Detect) Ethyl Alcohol mg/dL COVID-19 ([facility]) (Negative) COVID-19 Clin Com 06/13/20 06/13/20 06/13/20 Range/Units 11:42 11:42 11:42 WBC (4.8-10.8) X10*3/uL RBC (4.60-5.80) X10*6/uL Hgb (14.0-18.0) g/dl Hct (42-52) % MCV (80-98) fL MCH (27.0-33.0) pg MCHC (31.0-36.0) g/dl RDW (11.0-16.0) % Plt Count (160-400) X10*3/uL MPV (9.4-12.4) fL Immature Gran % (Auto) (0.0-0.4) % Neut % (Auto) (45-73) % Lymph % (Auto) (20-40) % [place] % (Auto) (2-11) % Eos % (Auto) (0-4) % Baso % (Auto) (0-2) % Lymph # (Auto) (1.2-4.9) X10*3/uL [place] # (Auto) (0.1-1.2) X10*3/uL Eos # (Auto) (0.0-0.4) X10*3/uL Baso # (Auto) (0.0-0.2) X10*3/uL Abs Immat Gran (auto) (0.00-0.03) X10*3/uL Absolute Neuts (auto) (2.0-8.3) X10*3/uL Absolute Nucleated RBC (0.0-0.012) X10*3/uL Nucleated RBC % (auto) (0.0-0.2) /100WBC Sodium 139 (135-145) mmol/L Potassium 5.1 (3.3-5.1) mmol/L Chloride 106 (96-108) mmol/L Carbon Dioxide 28 (22-29) mmol/L Anion Gap 10 L (12-20) BUN 8 L (9-16) mg/dL Creatinine 0.82 (0.5-1.4) mg/dL Estim Creat Clear Calc 120.4 Estimated GFR > 60 Random Glucose 93 (60-115) mg/dL Calcium 8.4 (8.4-10.2) mg/dL Magnesium 2.6 (1.6-2.6) mg/dL Total Bilirubin 0.3 (0.0-1.0) mg/dL Direct Bilirubin 0.2 (0.0-0.5) mg/dL AST 12 (5-37) U/L ALT 9 (0-40) U/L Alkaline Phosphatase 58 (39-117) U/L Total Protein 6.0 L (6.5-8.0) g/dL Albumin 3.9 (3.5-5.0) g/dL Urine Color Urine Appearance Urine pH (5.0-8.0) Ur Specific [place] (1.005-1.025) Urine Protein (NEG-TRACE) MG/DL Urine Glucose (UA) (NEG) MG/DL Urine Ketones (NEG) MG/DL Urine Blood (NEG) Urine Nitrite (NEG) Ur Leukocyte Esterase (NEG) Urine Opiates Screen (Not Detect) Ur Barbiturates Screen (Not Detect) Ur Phencyclidine Scrn (Not Detect) Ur Amphetamines Screen (Not Detect) U Benzodiazepines Scrn (Not Detect) Urine Cocaine Screen (Not Detect) U Marijuana (THC) Screen (Not Detect) Ethyl Alcohol < 10 mg/dL COVID-19 ([facility]) Negative (Negative) COVID-19 Clin Com See Note <MEGHANA Tan - Last Filed: 06/13/20 13:20> Lab Results 06/13/20 06/13/20 06/13/20 Range/Units 11:01 11:01 11:42 WBC 5.2 (4.8-10.8) X10*3/uL RBC 4.16 L (4.60-5.80) X10*6/uL Hgb 12.6 L (14.0-18.0) g/dl Hct 37.7 L (42-52) % MCV 90.6 (80-98) fL MCH 30.3 (27.0-33.0) pg MCHC 33.4 (31.0-36.0) g/dl RDW 13.9 (11.0-16.0) % Plt Count 308 D (160-400) X10*3/uL MPV 8.5 L (9.4-12.4) fL Immature Gran % (Auto) 0.4 (0.0-0.4) % Neut % (Auto) 51.6 (45-73) % Lymph % (Auto) 35.5 (20-40) % [place] % (Auto) 10.0 (2-11) % Eos % (Auto) 1.5 (0-4) % Baso % (Auto) 1.0 (0-2) % Lymph # (Auto) 1.8 (1.2-4.9) X10*3/uL [place] # (Auto) 0.5 (0.1-1.2) X10*3/uL Eos # (Auto) 0.1 (0.0-0.4) X10*3/uL Baso # (Auto) 0.1 (0.0-0.2) X10*3/uL Abs Immat Gran (auto) 0.02 (0.00-0.03) X10*3/uL Absolute Neuts (auto) 2.7 (2.0-8.3) X10*3/uL Absolute Nucleated RBC 0.000 (0.0-0.012) X10*3/uL Nucleated RBC % (auto) 0.0 (0.0-0.2) /100WBC Sodium (135-145) mmol/L Potassium (3.3-5.1) mmol/L Chloride (96-108) mmol/L Carbon Dioxide (22-29) mmol/L Anion Gap (12-20) BUN (9-16) mg/dL Creatinine (0.5-1.4) mg/dL Estim Creat Clear Calc Estimated GFR Random Glucose (60-115) mg/dL Calcium (8.4-10.2) mg/dL Magnesium (1.6-2.6) mg/dL Total Bilirubin (0.0-1.0) mg/dL Direct Bilirubin (0.0-0.5) mg/dL AST (5-37) U/L ALT (0-40) U/L Alkaline Phosphatase (39-117) U/L Total Protein (6.5-8.0) g/dL Albumin (3.5-5.0) g/dL Urine Color YELLOW Urine Appearance CLEAR Urine pH 7.0 (5.0-8.0) Ur Specific [place] 1.020 (1.005-1.025) Urine Protein NEG (NEG-TRACE) MG/DL Urine Glucose (UA) NEG (NEG) MG/DL Urine Ketones NEG (NEG) MG/DL Urine Blood NEG (NEG) Urine Nitrite NEG (NEG) Ur Leukocyte Esterase NEG (NEG) Urine Opiates Screen Not Detected (Not Detect) Ur Barbiturates Screen Not Detected (Not Detect) Ur Phencyclidine Scrn Not Detected (Not Detect) Ur Amphetamines Screen Not Detected (Not Detect) U Benzodiazepines Scrn Not Detected (Not Detect) Urine Cocaine Screen Not Detected (Not Detect) U Marijuana (THC) Screen POSITIVE H (Not Detect) Ethyl Alcohol mg/dL COVID-19 ([facility]) (Negative) COVID-19 Clin Com 06/13/20 06/13/20 06/13/20 Range/Units 11:42 11:42 11:42 WBC (4.8-10.8) X10*3/uL RBC (4.60-5.80) X10*6/uL Hgb (14.0-18.0) g/dl Hct (42-52) % MCV (80-98) fL MCH (27.0-33.0) pg MCHC (31.0-36.0) g/dl RDW (11.0-16.0) % Plt Count (160-400) X10*3/uL MPV (9.4-12.4) fL Immature Gran % (Auto) (0.0-0.4) % Neut % (Auto) (45-73) % Lymph % (Auto) (20-40) % [place] % (Auto) (2-11) % Eos % (Auto) (0-4) % Baso % (Auto) (0-2) % Lymph # (Auto) (1.2-4.9) X10*3/uL [place] # (Auto) (0.1-1.2) X10*3/uL Eos # (Auto) (0.0-0.4) X10*3/uL Baso # (Auto) (0.0-0.2) X10*3/uL Abs Immat Gran (auto) (0.00-0.03) X10*3/uL Absolute Neuts (auto) (2.0-8.3) X10*3/uL Absolute Nucleated RBC (0.0-0.012) X10*3/uL Nucleated RBC % (auto) (0.0-0.2) /100WBC Sodium 139 (135-145) mmol/L Potassium 5.1 (3.3-5.1) mmol/L Chloride 106 (96-108) mmol/L Carbon Dioxide 28 (22-29) mmol/L Anion Gap 10 L (12-20) BUN 8 L (9-16) mg/dL Creatinine 0.82 (0.5-1.4) mg/dL Estim Creat Clear Calc 120.4 Estimated GFR > 60 Random Glucose 93 (60-115) mg/dL Calcium 8.4 (8.4-10.2) mg/dL Magnesium 2.6 (1.6-2.6) mg/dL Total Bilirubin 0.3 (0.0-1.0) mg/dL Direct Bilirubin 0.2 (0.0-0.5) mg/dL AST 12 (5-37) U/L ALT 9 (0-40) U/L Alkaline Phosphatase 58 (39-117) U/L Total Protein 6.0 L (6.5-8.0) g/dL Albumin 3.9 (3.5-5.0) g/dL Urine Color Urine Appearance Urine pH (5.0-8.0) Ur Specific [place] (1.005-1.025) Urine Protein (NEG-TRACE) MG/DL Urine Glucose (UA) (NEG) MG/DL Urine Ketones (NEG) MG/DL Urine Blood (NEG) Urine Nitrite (NEG) Ur Leukocyte Esterase (NEG) Urine Opiates Screen (Not Detect) Ur Barbiturates Screen (Not Detect) Ur Phencyclidine Scrn (Not Detect) Ur Amphetamines Screen (Not Detect) U Benzodiazepines Scrn (Not Detect) Urine Cocaine Screen (Not Detect) U Marijuana (THC) Screen (Not Detect) Ethyl Alcohol < 10 mg/dL COVID-19 ([facility]) Negative (Negative) COVID-19 Clin Com See Note <Phong Bates MD - Last Filed: 07/01/20 13:29> Discharge Plan Discharge Clinical Impression: Bipolar disorder <MEGHANA Tan - Last Filed: 06/13/20 13:20> Patient Disposition: Home, Self-Care <MEGHANA Tan - Last Filed: 06/13/20 13:20> Instructions: Bipolar Disorder (ED) <MEGHANA Tan - Last Filed: 06/13/20 13:20> Additional Instructions: Recommend being seen by Psychiatry however you are refusing. Follow up with the outpatient resources that were provided to you in the ER. If you have worsening or persistent symptoms come back to the ER for further evaluation. <MEGHANA Tan - Last Filed: 06/13/20 13:20> Prescriptions: No Action acetaminophen 325 mg Tablet 325 mg PO Q4H PRN (Reason: Pain, Mild (Pain Scale 1-3)) 30 Days Qty: 240 RF: 0 docusate sodium 100 mg Capsule 100 mg PO BID 30 Days Qty: 60 RF: 0 oxycodone 5 mg Tablet 5 mg PO Q4H PRN (Reason: Pain, Moderate (Pain Scale 4-6) 7 Days Qty: 42 RF: 0 sulfamethoxazole-trimethoprim [Bactrim DS] 800-160 mg tablet 1 tab PO Q12H 60 Days Qty: 120 RF: 0 <MEGHANA Tan - Last Filed: 06/13/20 13:20> Interventions: ED Discharge Assessment Last Done: 06/13/20 13:38 <MEGHANA Tan - Last Filed: 06/13/20 13:20> Discharge Date/Time: 06/13/20 13:39 <MEGHANA Tan - Last Filed: 06/13/20 13:20>
[2020-06-13 11:24] LABS: Appearance Urine CLEAR; Color Urine YELLOW; Glucose Urine UA NEG (NEG); Leukocyte Esterase Urine NEG (NEG); Nitrite Urine NEG (NEG); Urine Blood NEG (NEG); Urine Ketones NEG (NEG); Urine Protein NEG (NEG-TRACE)
[2020-06-13 11:54] LABS: MANUAL DIFF FLAG NO
[2020-06-13 11:57] LABS: Basophils Absolute Auto 0.1 X10*3/uL (0.0-0.2); Eosinophils Absolute Auto 0.1 X10*3/uL (0.0-0.4); Eosinophils Percent Auto 1.5 % (0-4); Hematocrit 37.7 % (42-52); Hemoglobin 12.6 g/dl (14.0-18.0); Imm Gran Abs Auto 0.02 X10*3/uL (0.00-0.03); Imm Gran Pct Auto 0.4 % (0.0-0.4); Lymphocytes Absolute Auto 1.8 X10*3/uL (1.2-4.9); Lymphocytes Percent Auto 35.5 % (20-40); Mean Corpuscular HGB Conc 33.4 g/dl (31.0-36.0); Mean Corpuscular Hemoglobin 30.3 pg (27.0-33.0); Mean Corpuscular Volume 90.6 fL (80-98); Mean Platelet Volume 8.5 fL (9.4-12.4); Monocytes Absolute Auto 0.5 X10*3/uL (0.1-1.2); Neutrophils Absolute Auto 2.7 X10*3/uL (2.0-8.3); Neutrophils Percent Auto 51.6 % (45-73); Platelet Count 308 X10*3/uL (160-400); Red Blood Count 4.16 X10*6/uL (4.60-5.80); Red Cell Distribution Width 13.9 % (11.0-16.0); White Blood Count 5.2 X10*3/uL (4.8-10.8)
[2020-06-13 12:10] LABS: Amphetamine Screen Urine Not Detected (Not Detect); Barbiturates, Urine Not Detected (Not Detect); Benzodiazepines Screen Urine Not Detected (Not Detect); Cannabinoid Screen Urine POSITIVE (Not Detect); Cocaine Screen Urine Not Detected (Not Detect); Opiate Screen Urine Not Detected (Not Detect); Phencyclidine Screen Urine Not Detected (Not Detect)
[2020-06-13 12:15] LABS: COVID-19 Test Negative (Negative)
[2020-06-13 12:27] LABS: Ethanol < 10 mg/dL
[2020-06-13 12:30] LABS: Alanine Aminotransferase 9 U/L (0-40); Albumin Level 3.9 g/dL (3.5-5.0); Alkaline Phosphatase 58 U/L (39-117); Anion Gap 10 (12-20); Aspartate Amino Transferase 12 U/L (5-37); Bilirubin Direct 0.2 mg/dL (0.0-0.5); Bilirubin Total 0.3 mg/dL (0.0-1.0); Blood Urea Nitrogen 8 mg/dL (9-16); Calcium 8.4 mg/dL (8.4-10.2); Carbon Dioxide 28 mmol/L (22-29); Chloride 106 mmol/L (96-108); Creatinine Clr Calc Pharmacy 120.4; Estimated Glomerular Filt Rate > 60; Glucose Random 93 mg/dL (60-115); Magnesium 2.6 mg/dL (1.6-2.6); Potassium 5.1 mmol/L (3.3-5.1); Sodium 139 mmol/L (135-145)
--- NOTE | 2020-06-13 13:56 | MHC.CARE ---
This designer writer met with pt who reports increased agitation around being locked up. Pt presented with agitated mood and affect. Pt came out of his room yelling saying that he was leaving and didn't want to be there. Reported I want to go home. I don't need to be locked up and held against my will. This designer writer met with pt and helped to deescalate the situation and talked with him. Pt denied SI, HI, Ah/VH. Pt reported that he had been to [facility] before and felt locked up being here. Reported that he had no idea what to expect when he came to the hospital to get treatment. Reported he wanted to do it for his family but reported that him and his family had no idea of how getting psychiatric treatment would look. Reported that now he would have a better idea of how to get support if he needed it and did want to come back. Pt reported that he had bipolar disorder and reported therapy in the past and medications (reported that medication did not help in the past). pt reported that recently he had been isolating to his house and reported increased paranoia. Reported that his bank account and phones were being hacked. Reported people following him and reported that some of his paranoia was real but also had insight that some of it was paranoia and reported that he felt it was his bipolar. Pt reported that he wants more support and treatment. This designer writer gave him crisis number and also therapy supports. This designer writer set up an apt with [facility] and also called to make an apt for him with his PCP. Pt felt like he had more resources for leaving but reported that his family might be upset that he left. Pt was discharged and was cooperative leaving and apologized for getting upset with staff around leaving.
== END 2020-06-13 13:39 | disposition home or self-care (01) ==
PROVIDERS: Physician Assistant; Emergency Provider Emergency Medicine; PCP Internal Medicine
DX: F31.9 Bipolar disorder, unspecified (principal); F31.60 Bipolar disorder, current episode mixed, unspecified; F41.9 Anxiety disorder, unspecified; Z20.822 Contact with and (suspected) exposure to COVID-19; F17.210 Nicotine dependence, cigarettes, uncomplicated; F12.90 Cannabis use, unspecified, uncomplicated; Z86.14 Personal history of Methicillin resistant Staphylococcus aureus infection
CPT/HCPCS: 36415; 80048; 80076; 80307; 80320; 81003; 83735; 85025; 87635; 99284

== ENCOUNTER 2023-06-10 13:16 | Inpatient (IN) | payer OTHER, MEDICAID, SELFPAY ==
[2023-06-10 13:20] VITALS: BP 143/68; PULSE 86; RESP 16; TEMP 37.3; O2SAT 97; BMI 20.1
--- NOTE | 2023-06-10 13:21 | ED_ITS ---
HPI - General Adult General Chief complaint: Psychiatric Symptoms Stated complaint: crisis Time Seen by Provider: 06/10/23 13:24 Source: patient Mode of arrival: ambulatory Limitations: no limitations History of Present Illness HPI narrative: Patient is a 47 year old assigned male at with a history of bipolar disorder presenting to the emergency department today requesting to speak with CRISIS. Patient states that he has bipolar disorder and has been off of his meds for a long time. Patient denies any thoughts of hurting himself or others. Patient denies any dizziness, lightheadedness, abdominal pain, nausea, vomiting, fever, chills, blurry vision, double vision, loss of vision, chest pain, difficulty breathing, shortness of breath, back pain, night sweats, pain with urination, increased urinary frequency, increased urinary urgency, blood in his urine or stool, syncope or a near syncopal episode, recent trauma or falls, bowel incontinence, bladder incontinence, bowel retention, bladder retention, or any other complaints at this time. Patient states that he is feeling much more paranoid about people trying to get into his house and he is seeing the number 35 everywhere. Relieving factors: none Exacerbating factors: none Associated symptoms: denies other symptoms Treatments prior to arrival: none Related Data Home Medications Medication Instructions Recorded Confirmed No Known Home Meds 06/10/23 06/10/23 Allergies Allergy/AdvReac Type Severity Reaction Status Date / Time No Known Allergies Allergy Verified 01/11/20 14:04 [No Known Allergies*] Review of Systems 2 Constitutional: Constitutional: Reports no additional constitutional complaints, Denies chills, Denies fever(s) and Denies night sweats Eyes: Eyes: Reports no additional eye complaints, Denies blurry vision, Denies change in vision, Denies diplopia, Denies eye discharge, Denies loss of vision and Denies eye pain ENT: Denies dizziness Cardiovascular: Cardiovascular: Reports no additional cardiovascular complaints, Denies chest pain, Denies lightheadedness, Denies Loss of Consciousness and Denies dyspnea Respiratory: Respiratory: Reports no additional respiratory complaints and Denies dyspnea Gastrointestinal: Gastrointestinal: Reports no additional gastrointestinal complaints, Denies abdominal pain, Denies melena, Denies hematochezia, Denies change in bowel habits and Denies change in stool character Genitourinary: Genitourinary: Reports no additional male genitourinary complaints, Denies hematuria, Denies oliguria, Denies difficulty urinating, Denies dysuria, Denies urinary frequency, Denies urinary hesitancy, Denies urinary incontinence and Denies urinary urgency Musculoskeletal: Musculoskeletal: Reports no additional musculoskeletal complaints, Denies numbness and Denies tingling Neurologic: Denies dizziness, Denies loss of vision, Denies numbness and Denies tingling Psychiatric: Psychiatric: Reports paranoia, Reports visual hallucinations, Denies homicidal ideation and Denies suicidal ideation Endocrine: Endocrine: Reports no additional endocrine complaints Hematologic/Lymphatic: Hematologic/Lymphatic: Reports no additional hematologic/lymphatic complaints Allergic/Immunologic: Allergic/Immunologic: Reports no additional allergic/immunologic complaints [facility] Past Medical History Attestation statement: The following information was validated with the patient. Source: old records reviewed and nursing notes reviewed Medical History Phalanx, proximal fracture of finger No known health problems Surgical History Status post debridement Social History Social History Household Members: None Housing: House Do you presently have visiting nurse or other home services: No Alcohol intake: former Comment: sleeping Cigarette Packs Per Day: 0.5 Cigarettes Per Day: 10.0 Second Hand Smoke Exposure: No Substance Use Type: Marijuana Advance Directives: No Advance Directives Information Provided: No service: No Current occupational status: employed and other Physical Exam ED Vital Signs: Vital Signs - 24 hr 06/10/23 13:20 Temperature 99.2 F Pulse Rate 86 Respiratory Rate 16 Blood Pressure 143/68 H Pulse Oximetry 97 Oxygen Delivery Method Room Air BMI result Body Mass Index 20.1 Const General: cooperative, no acute distress, alert and awake Nutritional Appearance: well nourished Orientation/consciousness: patient oriented x3 Limitations: no limitations HENMT Head: Yes normal to inspection and Yes atraumatic Ears: hearing grossly normal bilaterally and external ears normal General nose exam: Normal external nose present, no nasal discharge noted and no epistaxis Face and sinus: Yes normal facial exam, No abrasion and No laceration Mouth: Normal oral and palatal mucosa present, no drooling and no muffled voice Eyes General: appearance normal, both eyes and all related structures Periorbital: periorbital findings normal Eyelids: Yes eyelids normal Conjunctivae: conjunctivae normal Pupils: Equal, round and reactive pupils present EOM: EOMs intact bilaterally Neck Neck: Yes normal visual inspection, Yes full ROM and Yes no lymphadenopathy Chest Chest palpation & inspection: normal inspection of the chest Resp Effort & Inspection: normal respiratory effort and able to speak in complete sentences GI Inspection: Yes normal to inspection Neuro General: patient oriented x3 and moves all extremities Cranial nerves: Yes Equal, round and reactive pupils present Cognition (Neuro): normal cognition Motor exam (neuro): 5/5 motor strength present throughout Sensory Exam: Normal double simultaneous stimulation for sensation Coordination: [id number] test normal Extrem General: Yes normal to inspection, Yes full ROM and Yes capillary refill normal Psych Appearance: grossly normal Mental Status: mental status grossly normal Affect: normal affect Attitude: cooperative Thought process: Normal thought process present Thought content: Normal thought content present Insight: Good insight present (Psych) Medical Decision Making Medical Decision Making MDM Narrative: Patient is a 47 year old assigned male at with a history of bipolar disorder presenting to the emergency department today in crisis and having visual hallucinations and paranoia. Patient's physical exam was as noted in the physical exam portion of this note. Patient's blood work was unremarkable. Patient's urine showed no acute process. I explained my physical exam findings as well as all test results to the patient. I answered all questions asked by the patient. Patient's disposition pending CARE evaluation. Differential Diagnosis Differential Diagnoses: The differential diagnosis associated with the presentation includes Crisis Carolyn Bipolar disorder Visual hallucinations Admission/Observation Consideration of admission/observation: Escalation of care including admission/observation considered Patient's disposition will be determined after CARE Team evaluation. Lab Data [facility] Lab Attestation statement: I reviewed the patient's lab results. My interpretation of these results are in the MDM Rationale portion of this note. 06/10/23 14:17 06/10/23 14:17 Labs: Lab Results 06/10/23 06/10/23 Range/Units 14:09 14:17 WBC 6.9 (4.8-10.8) X10*3/uL RBC 4.29 L (4.60-5.80) X10*6/uL Hgb 13.1 L (14.0-18.0) g/dl Hct 38.9 L (42.0-52.0) % MCV 90.7 (80.0-98.0) fL MCH 30.5 (27.0-33.0) pg MCHC 33.7 (31.0-36.0) g/dl RDW 13.4 (11.0-16.0) % Plt Count 245 (160-400) X10*3/uL MPV 8.7 L (9.4-12.4) fL Immature Gran % (Auto) 0.3 (0.0-0.4) % Neut % (Auto) 56.4 (45-73) % Lymph % (Auto) 32.7 (20-40) % Emmet % (Auto) 8.7 (2-11) % Eos % (Auto) 1.5 (0-4) % Baso % (Auto) 0.4 (0-2) % Lymph # (Auto) 2.3 (1.2-4.9) X10*3/uL Emmet # (Auto) 0.6 (0.1-1.2) X10*3/uL Eos # (Auto) 0.1 (0.0-0.4) X10*3/uL Baso # (Auto) 0.0 (0.0-0.2) X10*3/uL Abs Immat Gran (auto) 0.02 (0.00-0.03) X10*3/uL Absolute Neuts (auto) 3.9 (2.0-8.3) x10*3/uL Absolute Nucleated RBC 0.000 (0.0-0.012) X10*3/uL Nucleated RBC % (auto) 0.0 (0.0-0.2) /100WBC Sodium 143 (135-145) mmol/L Potassium 4.2 (3.3-5.1) mmol/L Chloride 108 (96-108) mmol/L Carbon Dioxide 27 (22-29) mmol/L Anion Gap 12 (12-20) BUN 8 L (9-16) mg/dL Creatinine 0.82 (0.5-1.4) mg/dL Estim Creat Clear Calc 102.4 Estimated GFR > 60 Random Glucose 81 (60-115) mg/dL Calcium 8.6 (8.4-10.2) mg/dL Total Bilirubin 0.3 (0.0-1.0) mg/dL AST 16 (5-37) U/L ALT 16 (0-40) U/L Alkaline Phosphatase 64 (39-117) U/L Total Protein 6.2 L (6.5-8.0) g/dL Albumin 3.8 (3.5-5.0) g/dL Urine Color Dark Yellow Urine Appearance Clear Urine pH 5.0 (5.0-9.0) Ur Specific [place] 1.025 (1.005-1.025) Urine Protein Negative (Neg-Trace) mg/dL Urine Glucose (UA) Negative (Negative) mg/dL Urine Ketones Trace (Negative) mg/dL Urine Blood Negative (Negative) Urine Nitrite Negative (Negative) Ur Leukocyte Esterase Negative (Negative) Urine Opiates Screen Not Detected (Not Detect) Urine Fentanyl Screen POSITIVE H (Not Detect) Ur Barbiturates Screen Not Detected (Not Detect) Ur Phencyclidine Scrn Not Detected (Not Detect) Ur Amphetamines Screen POSITIVE H (Not Detect) U Benzodiazepines Scrn Not Detected (Not Detect) Urine Cocaine Screen Not Detected (Not Detect) U Marijuana (THC) Screen POSITIVE H (Not Detect) Ethyl Alcohol < 10 mg/dL COVID-19 ([facility]) Negative (Negative) COVID-19 Clin Com See Note Discharge Plan Discharge Clinical Impression: Carolyn, Bipolar 1 disorder Patient Disposition: Still a Patient Prescriptions: No Action No Known Home Meds
[2023-06-10 14:21] LABS: MANUAL DIFF FLAG NO
[2023-06-10 14:26] LABS: Basophils Percent Auto 0.4 % (0-2); Eosinophils Absolute Auto 0.1 X10*3/uL (0.0-0.4); Eosinophils Percent Auto 1.5 % (0-4); Hematocrit 38.9 % (42.0-52.0); Hemoglobin 13.1 g/dl (14.0-18.0); Imm Gran Abs Auto 0.02 X10*3/uL (0.00-0.03); Imm Gran Pct Auto 0.3 % (0.0-0.4); Lymphocytes Absolute Auto 2.3 X10*3/uL (1.2-4.9); Lymphocytes Percent Auto 32.7 % (20-40); Mean Corpuscular HGB Conc 33.7 g/dl (31.0-36.0); Mean Corpuscular Hemoglobin 30.5 pg (27.0-33.0); Mean Corpuscular Volume 90.7 fL (80.0-98.0); Mean Platelet Volume 8.7 fL (9.4-12.4); Monocytes Absolute Auto 0.6 X10*3/uL (0.1-1.2); Monocytes Percent Auto 8.7 % (2-11); Neutrophils Absolute Auto 3.9 x10*3/uL (2.0-8.3); Neutrophils Percent Auto 56.4 % (45-73); Platelet Count 245 X10*3/uL (160-400); Red Blood Count 4.29 X10*6/uL (4.60-5.80); Red Cell Distribution Width 13.4 % (11.0-16.0); White Blood Count 6.9 X10*3/uL (4.8-10.8)
[2023-06-10 14:29] LABS: Appearance Urine Clear; Color Urine Dark Yellow; Glucose Urine UA Negative (Negative); Leukocyte Esterase Urine Negative (Negative); Nitrite Urine Negative (Negative); Specific Gravity - Urine 1.025 (1.005-1.025); Urine Blood Negative (Negative); Urine Ketones Trace mg/dL (Negative); Urine Protein Negative (Neg-Trace)
[2023-06-10 14:33] LABS: Amphetamine Screen Urine POSITIVE (Not Detect); Barbiturates, Urine Not Detected (Not Detect); Benzodiazepines Screen Urine Not Detected (Not Detect); Cannabinoid Screen Urine POSITIVE (Not Detect); Cocaine Screen Urine Not Detected (Not Detect); Fentanyl, urine POSITIVE (Not Detect); Opiate Screen Urine Not Detected (Not Detect); Phencyclidine Screen Urine Not Detected (Not Detect)
[2023-06-10 14:37] LABS: IDNOW Serial# 152EDE1D
[2023-06-10 14:38] LABS: COVID-19 Test Negative (Negative)
[2023-06-10 14:43] LABS: Alanine Aminotransferase 16 U/L (0-40); Albumin Level 3.8 g/dL (3.5-5.0); Alkaline Phosphatase 64 U/L (39-117); Anion Gap 12 (12-20); Aspartate Amino Transferase 16 U/L (5-37); Bilirubin Total 0.3 mg/dL (0.0-1.0); Blood Urea Nitrogen 8 mg/dL (9-16); Calcium 8.6 mg/dL (8.4-10.2); Carbon Dioxide 27 mmol/L (22-29); Chloride 108 mmol/L (96-108); Creatinine Clr Calc Pharmacy 102.4; Estimated Glomerular Filt Rate > 60; Ethanol < 10 mg/dL; Glucose Random 81 mg/dL (60-115); Potassium 4.2 mmol/L (3.3-5.1); Sodium 143 mmol/L (135-145); Total Protein 6.2 g/dL (6.5-8.0)
[2023-06-10 14:50] LABS: Acetaminophen LAB < 3 mcg/mL (<30); Salicylate < 5.0 mg/dL (15-30)
[2023-06-10] MEDS: Acetaminophen 325 MG TABLET 975 MG PO (19:10)
[2023-06-10 23:24] VITALS: BP 121/78; PULSE 51; RESP 16; TEMP 36.8; O2SAT 97
[2023-06-11] MEDS: OLANZapine 10 MG TABLET PO ×2 (05:19→18:44)
[2023-06-11] MEDS: LORazepam 1 MG TABLET 2 MG PO ×2 (05:19→18:43)
[2023-06-11] MEDS: Nicotine Polacrilex 2 MG GUM 4 MG BUCCAL ×2 (05:31→18:44)
--- NOTE | 2023-06-11 07:35 | ECG_ITS ---
Test Reason : qtc interval Blood Pressure : / mmHG Vent. Rate : 064 BPM Atrial Rate : 064 BPM P-R Int : 148 ms QRS Dur : 072 ms QT Int : 386 ms P-R-T Axes : 080 086 057 degrees QTc Int : 398 ms Normal sinus rhythm ST elevation, consider early repolarization Borderline ECG No previous ECGs available Referred By: Theodora Dunn Electronically Signed By:Oscar Fletcher
--- NOTE | 2023-06-11 12:33 | PC.NURSE ---
Attempted to do an EKG machine malfunctioned. Will attempt to do it again with different machine. Patient getting angry.
--- NOTE | 2023-06-11 12:55 | PC.NURSE ---
phelbotomy came to draw Carb level not a good time for extra people in pod asked them to leave. Will attempt to do EKG now.
--- NOTE | 2023-06-11 14:39 | PC.NURSE ---
Brought to by tech and security. Patient complaint with transfer
[2023-06-11 14:52] VITALS: BP 126/76; PULSE 72; RESP 16; TEMP 37.4; O2SAT 98
--- NOTE | 2023-06-11 15:44 | PC.NURSE ---
pt arrived on the unit at 14:43 via wheelchair on a sec 12. Safety search performed, vitals recorded, and menu completed for tonights dinner. Pt was oriented to the unit. Admission to be completed.
--- NOTE | 2023-06-11 16:55 | PM.EVENT ---
Documented by User: Carola Lim APRN 06/11/23 16:57 Event Note Date of Service: 06/11/23 Event Note: Section 12 B was signed. Attempted to discuss this with pt who is in bed, eyes closed. He opened his eyes when tw attempted to tw him, was non verbal, then closed his eyes and was non participatory. Time Spent With Patient Time: Total time managing care of this patient today ____ minutes. Documented by User: Alfa Isaac MD 06/15/23 13:07 Event Note Date of Service: 06/15/23
[2023-06-11 20:11] LABS: Influenza A PCR NEGATIVE (Negative); Influenza B PCR NEGATIVE (Negative); Resp Syncy Virus RNA Qual PCR NEGATIVE (Negative); SARS COV2 PCR INHOUSE NEGATIVE (Negative)
[2023-06-11] MEDS: hydrOXYzine HCL 25 MG TABLET PO (20:56)
[2023-06-11] MEDS: traZODone HCL 50 MG TABLET PO (20:56)
[2023-06-12 08:05] LABS: Estimated Average Glucose 105 mg/dL; Hemoglobin A1c % 5.3 % (<6.0)
[2023-06-12 08:21] LABS: Cholesterol 175 mg/dL (<200); HDL Cholesterol 49 mg/dL (>40); Iron 37 mcg/dL (45-160); LDL Cholesterol Calculated 110 mg/dL (<100); Magnesium 2.3 mg/dL (1.6-2.6); Percent Iron Saturation 15 % (15-50); Total Iron Binding Capacity 244 mcg/dL (228-428); Triglycerides 83 mg/dL (<150); Unsaturated Iron Binding 207 ug/dL
[2023-06-12 08:24] LABS: Carbamazepine Tegretol < 2.0 mcg/mL (5.0-12.0)
[2023-06-12 08:35] LABS: Free T4 (Free Thyroxine) 0.96 ng/dL (0.71-1.85); Thyroid Stimulating Hormone 0.46 uIU/mL (0.32-4.0)
[2023-06-12 08:45] LABS: Folate 10.1 ng/mL (> or = 4.0); Vitamin B12 380 pg/mL (200-900)
[2023-06-12 10:01] VITALS: BP 111/72; PULSE 88; RESP 18; TEMP 36.9; O2SAT 98
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
[2023-06-12] MEDS: Nicotine Polacrilex 2 MG GUM 4 MG BUCCAL ×2 (12:28→19:47)
[2023-06-12] MEDS: OLANZapine 10 MG TABLET PO ×2 (12:28→19:47)
[2023-06-12] MEDS: LORazepam 1 MG TABLET 2 MG PO (12:28)
[2023-06-12 18:00] VITALS: BP 132/81; PULSE 66; RESP 16; TEMP 36.9; O2SAT 99
[2023-06-12] MEDS: traZODone HCL 50 MG TABLET PO (19:47)
[2023-06-13 07:00] VITALS: BMI 19.2
[2023-06-13 09:00] VITALS: BP 122/73; PULSE 80; RESP 18; TEMP 36.5; O2SAT 98
[2023-06-13] MEDS: OLANZapine 5 MG TABLET PO ×3 (09:02→19:46)
[2023-06-13] MEDS: cloNIDine HCL 0.1 MG TABLET PO ×3 (09:02→19:46)
[2023-06-13] MEDS: Nicotine Polacrilex 2 MG GUM 4 MG BUCCAL ×4 (09:32→22:30)
--- NOTE | 2023-06-13 11:58 | P.PNPSI_ITS ---
Subjective Subjective Date of Service: 06/13/23 Reason For Visit: Bipolar disorder Polysubstance Use Disorder Interim History: Met with patient; discussed with team feels overall better, more clear minded. Patient shared about improved symptoms and he's able to focus on it more, showing paperwork in front of him that previously he said he was too distracted to attend. Says has not seen any numbers at all; no AVH; not worried people are after. Says he's sleeping well here which is a welcomed relief and he feels well rested; also says has appetite back..He says he feels less anxious and also does not feel so angry, which he says is common. Denies med side-effects. Still very much wants to DC Saturday since he's very worried about finding employment. Again reviewed diagnosis and medication and patient again expressed relief for understanding what is been going on and gratitude for medication. He laments losing his job which he is pretty sure has happened but his optimistic that he will find another 1 saying that he always works hard to do so. He is also grateful for PCP being set up and for outpatient therapy which he agrees he needs and will benefit from. Patient gave verbal permission and asked telegraphic typewriter operator to talk to his sister Kaitlin; telegraphic typewriter operator did talk with his sister Kaitlin (patient asked telegraphic typewriter operator to call her and give number). She corroborates that patients report of past; she adds that he went to prison taking the fall for someone else is crime and went to an adult care home as a teenager. She says that he has been doing very well at his job and has had consistent employment and that he tries hard to do the right things; she also reports he is not aggressive towards other and is not a risk for harm to self or others. Mental Status Exam Mental Status Exam Narrative: Pt is alert and oriented; behavior is overall cooperative, friendly and calm, with moments of flared irritability but able to resolve on its own; patient is not in distress; dressed in casual attire with unkempt hair but adequate hygiene; mood is described as good and affect congruent; eye contact appropriate; Speech is normal rate, volume and prosody and not pressured; no psychomotor agitation/retardation present; thought process is organized and goal directed; Thought content is on tx; otherwise pertinent to relevant topics and without any delusional content, paranoid ideations or grandiosity; denies any SI/HI. There is no evidence of perceptual disturbance. Patients insight and judgment appear intact. Diagnostics Vital Signs (24Hr): Vital Signs - 24 hr 06/12/23 18:00 06/13/23 09:00 Temperature 98.4 F 97.7 F Pulse Rate 66 80 Respiratory Rate 16 18 Blood Pressure 132/81 122/73 Pulse Oximetry 99 98 Oxygen Delivery Method Room Air Room Air BMI result Body Mass Index 20.1 Labs 06/10/23 14:17 06/10/23 14:17 Labs: Laboratory Results - last 48 hr 06/11/23 06/12/23 06/12/23 18:47 07:44 07:46 Estimat Average Glucose 105 Hemoglobin A1c % 5.3 Magnesium 2.3 Iron 37 L TIBC 244 % Saturation 15 Unsat Iron Binding 207 Triglycerides 83 Cholesterol 175 LDL Cholesterol, Calc 110 H HDL Cholesterol 49 Vitamin B12 380 Folate 10.1 TSH 0.46 Free T4 0.96 Carbamazepine < 2.0 L* Influenza Type A (PCR) NEGATIVE Influenza Type B (PCR) NEGATIVE RSV RNA Qual (PCR) NEGATIVE SARS-CoV-2 RNA (RT-PCR) NEGATIVE Medications Medications Current Medications Acetaminophen (Acetaminophen 325 Mg Tablet) 650 mg PO Q6H PRN PRN Reason: Headache/Pain Mild Scale (1-3) Al Hydroxide/Mg Hydroxide (Magnesium Hydrox/Alum Hydrox 30 Ml Oral.Susp) 30 ml PO Q6H PRN PRN Reason: Heartburn/Nausea Clonidine HCl (Clonidine Hcl 0.1 Mg Tablet) 0.1 mg PO Q4H PRN; Protocol PRN Reason: anxiety Last Admin: 06/13/23 09:02 Dose: 0.1 mg Hydroxyzine HCl (Hydroxyzine Hcl 25 Mg Tablet) 25 mg PO Q6H PRN PRN Reason: Anxiety Last Admin: 06/11/23 20:56 Dose: 25 mg Magnesium Hydroxide (Milk Of Magnesia 30 Ml Oral.Susp) 30 ml PO DAILY PRN PRN Reason: Constipation Nicotine Polacrilex (Nicotine Polacrilex 2 Mg Gum) 4 mg BUCCAL Q2H PRN PRN Reason: Nicotine Cravings Last Admin: 06/13/23 09:32 Dose: 4 mg Olanzapine (Olanzapine 10 Mg Tablet) 10 mg PO BEDTIME LEANDRO Last Admin: 06/12/23 19:47 Dose: 10 mg Olanzapine (Olanzapine 5 Mg Tablet) 5 mg PO TID PRN PRN Reason: agitation Last Admin: 06/13/23 09:02 Dose: 5 mg Trazodone HCl (Trazodone Hcl 50 Mg Tablet) 50 mg PO BEDTIME MRX1 PRN PRN Reason: Insomnia Last Admin: 06/12/23 19:47 Dose: 50 mg Allergies Allergies Allergy/AdvReac Type Severity Reaction Status Date / Time No Known Allergies Allergy Verified 01/11/20 14:04 [No Known Allergies*] Assessment & Plan Assessment & Plan (1) Schizophrenia: Status: Acute Code(s): F20.9 - Schizophrenia, unspecified (2) PTSD (post-traumatic stress disorder): Status: Acute Code(s): F43.10 - Post-traumatic stress disorder, unspecified Plan Pt is a 47 yo male on [address] B, with hx of Rt hand osteomyelitis, shoulder/hand surgery, depression, PTSD, history of incarceration, no prior psychiatric hospitalizations, who presents to the ED at behest of family for worsening paranoid delusions. He reports that for the past few years he is become increasingly anxious that he is being harrassed though not sure by whom or why. He reports that a few years ago he had significant delusion that his girlfriend was being kidnapped, raped, he grabbed a knife and was running through various neighboring apartments trying to find her, only to later realize that she was actually at her mother's house. Ongoing patient has been hearing noises in the wall, as if someone's rummaging or trying to get into the apartment; he says nobody else can hear it at all; if someone's visiting the apartment he has the suspicion that there there, making noise to cover up the person who is rummaging through the wall. Recently patient saw hole in the wall that he thought maybe was a secret hole through which someone could gain access to the apartment; did some reality testing saying how unlikely it is but he remained suspicious. Patient also reports that for years, he will see the image of numbers in various places, on the table, in the window, on the floor in a grease puddle... He says it is faint but he can make it out although nobody else can see it at all; he says he thinks that the numbers are some kind of sign, maybe a credit card number but he is worried that someone is taking pictures and sending the picture somewhere... Patient had some suspicions that perhaps his current girlfriend was involved in this conspiracy to harass him, however however patient started seeing them for the 1st time at his workplace and thus realized not only is his girlfriend not involved, but he may be having delusions and that something is wrong with his mind rather than there is a true conspiracy... Though he remained ambivalent. Patient has been losing weight due to the stress. He gets so frustrated and angry at himself that he will sometimes punch a wall or hit himself in the head. His sister and mother remain involved in his life, worried about him urged him to go to the hospital and his sister brought him in. Patient denies any history of manic episodes or behaviors. He reports history of daily [id number] depression that he is able to push through on his own; sometimes he will have severely depressed feelings but only last for a day or 2; denies any SI at all. Denies alcohol use; use cannabis, acknowledges that he sometimes buys Adderall on the street; he buys Percocet on the street for back pain but says he makes 1 pill last all week. Formulation/Plan: Although patient on a Section 12 B, he very much wants treatment and says he wanted to be voluntary but got frustrated about the sign in process. Senior Marketing Associate again explained the legal paperwork and patient declined to sign a CV saying he does want to leave as soon as possible though also wants help. Initially patient was very irritable and verbally agitated however he was able to calmed down and became very forthcoming during one-to-one meetings. He remains with low frustration tolerance however has been able to keep himself in behavioral control. Diagnosed with provisionally with schizophrenia as he meets criteria given duration of time of AH and paranoid delusions; although it does seem a little late in life for diagnosis to make itself known, patient also has significant PTSD from history of trauma and it is possible that paranoid delusions were masked by PTSD symptoms. Thoroughly reviewed history and no evidence of manic symptoms or episodes. Discussed medications and patient agrees to start Zyprexa and risks/side effects were reviewed which he understood and accepted. He says he is happy to have a working diagnosis and he says it makes sense and is relieved that there is no actual conspiracy against him. Patient denies any history of self-harm; he denies any recent history at all of any aggression towards others. Patient is wanting treatment but also anxious to discharge since he feels he lost his job and is worried about paying for rent and other bills; he still wants to leave this Saturday if possible and permission to discuss his case with his sister who is a dental receptionist and involved in his life and gives telegraphic typewriter operator her phone number. -regarding history of trauma and PTSD symptoms, at this time find it most reasonable to address his most significant problem of paranoid delusions and AVH; at some point he may very well benefit from an SSRI however this will best be addressed by outpatient provider; he has not been on any medications for over a decade and its telegraphic typewriter operator's opinion that adding more medications at this time would be overwhelming; lowering psychotic symptoms will significantly improve his overall function ability. Hospital course: 06/12 feels overall better, more clear minded. Patient shared about improved symptoms and he's able to focus on it more, showing paperwork in front of him that previously he said he was too distracted to attend. Says has not seen any numbers at all; no AVH; not worried people are after. Says he's sleeping well here which is a welcomed relief and he feels well rested; also says has appetite back..He says he feels less anxious and also does not feel so angry, which he says is common. Denies med side-effects. Still very much wants to DC Saturday since he's very worried about finding employment. Again reviewed diagnosis and medication and patient again expressed relief for understanding what is been going on and gratitude for medication. He laments losing his job which he is pretty sure has happened but his optimistic that he will find another 1 saying that he always works hard to do so. He is also grateful for PCP being set up and for outpatient therapy which he agrees he needs and will benefit from. Patient gave verbal permission and asked telegraphic typewriter operator to talk to his sister Kaitlin; telegraphic typewriter operator did talk with his sister Kaitlin (patient asked telegraphic typewriter operator to call her and give number). She corroborates that patients report of past; she adds that he went to prison taking the fall for someone else is crime and went to an adult care home as a teenager. She says that he has been doing very well at his job and has had consistent employment and that he tries hard to do the right things; she also reports he is not aggressive towards other and is not a risk for harm to self or others. Patient wants to discharge tomorrow; his 12 B is due. Patient remains in overall good behavioral and impulse control and though will sometimes have a flare of anger and frustration something, is able to calm himself down and stay in control. His insight and judgment have significantly improved and he understands his psychiatric illness and need for medication for which he is grateful. Patient denies any SI or HI or AVH. He is optimistic about staying stable and says he will follow up with outpatient providers. Continues to enjoy the support of his family. While he remains emotionally reactive, he is doing much better and his emotional reactivity will not resolve with longer stay on inpatient unit. Rather it requires consistent outpatient therapy with which he says he is ready to engage. Patient is not in imminent risk for harm to self or others and request for discharge honored. Plan: Section 12 Q 15 minute checks Start Zyprexa 10 mg q.h.s. Zyprexa 5 mg t.i.d. p.r.n. for anxiety/agitation Adding clonidine 0.1 mg as a p.r.n. Trazodone p.r.n. Will gather collateral Patient educated on: diagnosis, medication risk/benefits and therapeutic strategies Informed Consent: understands Reason for continued inpatient stay Substantial Risk for: stable for discharge Time Spent With Patient Time: Total time managing care of this patient today ____ minutes.
[2023-06-13] MEDS: hydrOXYzine HCL 25 MG TABLET PO ×2 (13:02→19:45)
[2023-06-13 13:06] VITALS: BP 126/78; PULSE 74
--- NOTE | 2023-06-13 17:18 | PM.EVENT ---
Event Note Date of Service: 06/13/23 Event Note: Addiction consult placed Chart reviewed, patient to be seen 3 AM Time Spent With Patient Time: Total time managing care of this patient today ____ minutes.
[2023-06-13 18:00] VITALS: BP 131/60; PULSE 96; RESP 18; TEMP 36.6; O2SAT 98
[2023-06-13] MEDS: traZODone HCL 50 MG TABLET PO (19:45)
[2023-06-13] MEDS: OLANZapine 10 MG TABLET PO (19:46)
--- NOTE | 2023-06-14 07:44 | PM.PSYDC ---
DS: Providers Provider Date of Service: 06/14/23 Date of admission: 06/11/23 12:19 Date of discharge: 06/14/23 Primary care physician: Unknown Physician Attending physician on admission: Ronald Roy Consults: 06/11/23 22:44 Addiction Medicine Routine Consulting Provider: Addiction Covering Reason for consultation: Pt. uses street drugs Has provider been notified: No Attending physician on discharge: Ronald Roy DS: Medications Discharge Medications Home Medications: Previous Rx's Medication Instructions Recorded clonidine HCl 0.1 mg tablet 0.1 mg PO Q4H PRN anxiety 30 days 06/14/23 #90 tabs nicotine (polacrilex) 4 mg gum 4 mg buccal Q2H PRN nicotine 06/14/23 cravings 30 days #100 ea olanzapine 10 mg tablet 10 mg PO BEDTIME 30 days #30 tabs 06/14/23 trazodone 50 mg tablet 50 mg PO BEDTIME PRN Insomnia 30 06/14/23 days #30 tabs Mental Status Exam Mental Status Exam Narrative: Pt is alert and oriented; behavior is overall cooperative, friendly and calm; patient is not in distress; dressed in casual attire with adequate hygiene; mood is described as good and affect congruent; eye contact appropriate; Speech is normal rate, volume and prosody and not pressured; no psychomotor agitation/retardation present; thought process is organized and goal directed; Thought content is on aftercare plans, tx; otherwise pertinent to relevant topics and without any delusional content, paranoid ideations or grandiosity; denies any SI/HI. There is no evidence of perceptual disturbance. Patients insight and judgment are intact. Data Data Completed and Pending Completed studies during hospitalization [Text1]: 06/10/23 06/10/23 06/11/23 14:09 14:17 18:47 WBC 6.9 RBC 4.29 L Hgb 13.1 L Hct 38.9 L MCV 90.7 MCH 30.5 MCHC 33.7 RDW 13.4 Plt Count 245 MPV 8.7 L Immature Gran % (Auto) 0.3 Neut % (Auto) 56.4 Lymph % (Auto) 32.7 Motley % (Auto) 8.7 Eos % (Auto) 1.5 Baso % (Auto) 0.4 Lymph # (Auto) 2.3 Motley # (Auto) 0.6 Eos # (Auto) 0.1 Baso # (Auto) 0.0 Abs Immat Gran (auto) 0.02 Absolute Neuts (auto) 3.9 Absolute Nucleated RBC 0.000 Nucleated RBC % (auto) 0.0 Sodium 143 Potassium 4.2 Chloride 108 Carbon Dioxide 27 Anion Gap 12 BUN 8 L Creatinine 0.82 Estim Creat Clear Calc 102.4 Estimated GFR > 60 Random Glucose 81 Estimat Average Glucose Hemoglobin A1c % Calcium 8.6 Magnesium Iron TIBC % Saturation Unsat Iron Binding Total Bilirubin 0.3 AST 16 ALT 16 Alkaline Phosphatase 64 Total Protein 6.2 L Albumin 3.8 Triglycerides Cholesterol LDL Cholesterol, Calc HDL Cholesterol Vitamin B12 Folate TSH Free T4 Urine Color Dark Yellow Urine Appearance Clear Urine pH 5.0 Ur Specific [place] 1.025 Urine Protein Negative Urine Glucose (UA) Negative Urine Ketones Trace Urine Blood Negative Urine Nitrite Negative Ur Leukocyte Esterase Negative Salicylates < 5.0 L Urine Opiates Screen Not Detected Urine Fentanyl Screen POSITIVE H Acetaminophen < 3 Ur Barbiturates Screen Not Detected Carbamazepine Ur Phencyclidine Scrn Not Detected Ur Amphetamines Screen POSITIVE H U Benzodiazepines Scrn Not Detected Urine Cocaine Screen Not Detected U Marijuana (THC) Screen POSITIVE H Ethyl Alcohol < 10 COVID-19 ([facility]) Negative COVID-19 Clin Com See Note Influenza Type A (PCR) NEGATIVE Influenza Type B (PCR) NEGATIVE RSV RNA Qual (PCR) NEGATIVE SARS-CoV-2 RNA (RT-PCR) NEGATIVE 06/12/23 06/12/23 07:44 07:46 WBC RBC Hgb Hct MCV MCH MCHC RDW Plt Count MPV Immature Gran % (Auto) Neut % (Auto) Lymph % (Auto) [place] % (Auto) Eos % (Auto) Baso % (Auto) Lymph # (Auto) [place] # (Auto) Eos # (Auto) Baso # (Auto) Abs Immat Gran (auto) Absolute Neuts (auto) Absolute Nucleated RBC Nucleated RBC % (auto) Sodium Potassium Chloride Carbon Dioxide Anion Gap BUN Creatinine Estim Creat Clear Calc Estimated GFR Random Glucose Estimat Average Glucose 105 Hemoglobin A1c % 5.3 Calcium Magnesium 2.3 Iron 37 L TIBC 244 % Saturation 15 Unsat Iron Binding 207 Total Bilirubin AST ALT Alkaline Phosphatase Total Protein Albumin Triglycerides 83 Cholesterol 175 LDL Cholesterol, Calc 110 H HDL Cholesterol 49 Vitamin B12 380 Folate 10.1 TSH 0.46 Free T4 0.96 Urine Color Urine Appearance Urine pH Ur Specific [place] Urine Protein Urine Glucose (UA) Urine Ketones Urine Blood Urine Nitrite Ur Leukocyte Esterase Salicylates Urine Opiates Screen Urine Fentanyl Screen Acetaminophen Ur Barbiturates Screen Carbamazepine < 2.0 L* Ur Phencyclidine Scrn Ur Amphetamines Screen U Benzodiazepines Scrn Urine Cocaine Screen U Marijuana (THC) Screen Ethyl Alcohol COVID-19 ([facility]) COVID-19 Clin Com Influenza Type A (PCR) Influenza Type B (PCR) RSV RNA Qual (PCR) SARS-CoV-2 RNA (RT-PCR) DS: Summary Hospital Course Hospital Course: HPI: Pt is a 47 yo male on [address], with hx of Rt hand osteomyelitis, shoulder/hand surgery, depression, PTSD, history of incarceration, no prior psychiatric hospitalizations, who presents to the ED at behest of family for worsening paranoid delusions. He reports that for the past few years he is become increasingly anxious that he is being harrassed though not sure by whom or why. He reports that a few years ago he had significant delusion that his girlfriend was being kidnapped, raped, he grabbed a knife and was running through various neighboring apartments trying to find her, only to later realize that she was actually at her mother's house. Ongoing patient has been hearing noises in the wall, as if someone's rummaging or trying to get into the apartment; he says nobody else can hear it at all; if someone's visiting the apartment he has the suspicion that there there, making noise to cover up the person who is rummaging through the wall. Recently patient saw hole in the wall that he thought maybe was a secret hole through which someone could gain access to the apartment; did some reality testing saying how unlikely it is but he remained suspicious. Patient also reports that for years, he will see the image of numbers in various places, on the table, in the window, on the floor in a grease puddle... He says it is faint but he can make it out although nobody else can see it at all; he says he thinks that the numbers are some kind of sign, maybe a credit card number but he is worried that someone is taking pictures and sending the picture somewhere... Patient had some suspicions that perhaps his current girlfriend was involved in this conspiracy to harass him, however however patient started seeing them for the 1st time at his workplace and thus realized not only is his girlfriend not involved, but he may be having delusions and that something is wrong with his mind rather than there is a true conspiracy... Though he remained ambivalent. Patient has been losing weight due to the stress. He gets so frustrated and angry at himself that he will sometimes punch a wall or hit himself in the head. His sister and mother remain involved in his life, worried about him urged him to go to the hospital and his sister brought him in. Patient denies any history of manic episodes or behaviors. He reports history of daily [id number] depression that he is able to push through on his own; sometimes he will have severely depressed feelings but only last for a day or 2; denies any SI at all. Denies alcohol use; use cannabis, acknowledges that he sometimes buys Adderall on the street; he buys Percocet on the street for back pain but says he makes 1 pill last all week. Formulation/Plan: Although patient on a Section 12 B, he very much wants treatment and says he wanted to be voluntary but got frustrated about the sign in process. Quantometer Operator again explained the legal paperwork and patient declined to sign a CV saying he does want to leave as soon as possible though also wants help. Initially patient was very irritable and verbally agitated however he was able to calmed down and became very forthcoming during one-to-one meetings. He remains with low frustration tolerance however has been able to keep himself in behavioral control. Diagnosed with provisionally with schizophrenia as he meets criteria given duration of time of AH and paranoid delusions; although it does seem a little late in life for diagnosis to make itself known, patient also has significant PTSD from history of trauma and it is possible that paranoid delusions were masked by PTSD symptoms. Thoroughly reviewed history and no evidence of manic symptoms or episodes. Discussed medications and patient agrees to start Zyprexa and risks/side effects were reviewed which he understood and accepted. He says he is happy to have a working diagnosis and he says it makes sense and is relieved that there is no actual conspiracy against him. Patient denies any history of self-harm; he denies any recent history at all of any aggression towards others. Patient is wanting treatment but also anxious to discharge since he feels he lost his job and is worried about paying for rent and other bills; he still wants to leave this Saturday if possible and permission to discuss his case with his sister who is a global risk management director and involved in his life and gives telegraphic typewriter mechanic her phone number. -regarding history of trauma and PTSD symptoms, at this time find it most reasonable to address his most significant problem of paranoid delusions and AVH; at some point he may very well benefit from an SSRI however this will best be addressed by outpatient provider; he has not been on any medications for over a decade and its telegraphic typewriter mechanic's opinion that adding more medications at this time would be overwhelming; lowering psychotic symptoms will significantly improve his overall function ability. Hospital course: 06/12 feels overall better, more clear minded. Patient shared about improved symptoms and he's able to focus on it more, showing paperwork in front of him that previously he said he was too distracted to attend. Says has not seen any numbers at all; no AVH; not worried people are after. Says he's sleeping well here which is a welcomed relief and he feels well rested; also says has appetite back..He says he feels less anxious and also does not feel so angry, which he says is common. Denies med side-effects. Still very much wants to DC Saturday since he's very worried about finding employment. Again reviewed diagnosis and medication and patient again expressed relief for understanding what is been going on and gratitude for medication. He laments losing his job which he is pretty sure has happened but his optimistic that he will find another 1 saying that he always works hard to do so. He is also grateful for PCP being set up and for outpatient therapy which he agrees he needs and will benefit from. Patient gave verbal permission and asked telegraphic typewriter mechanic to talk to his sister Kaitlin; telegraphic typewriter mechanic did talk with his sister Kaitlin (patient asked telegraphic typewriter mechanic to call her and give number). She corroborates that patients report of past; she adds that he went to halfway taking the fall for someone else is crime and went to an adult jail as a teenager. She says that he has been doing very well at his job and has had consistent employment and that he tries hard to do the right things; she also reports he is not aggressive towards other and is not a risk for harm to self or others. Patient wants to discharge tomorrow; his 12 B is due. Patient remains in overall good behavioral and impulse control and though will sometimes have a flare of anger and frustration something, is able to calm himself down and stay in control. His insight and judgment have significantly improved and he understands his psychiatric illness and need for medication for which he is grateful. Patient denies any SI or HI or AVH. He is optimistic about staying stable and says he will follow up with outpatient providers. Continues to enjoy the support of his family. While he remains emotionally reactive, he is doing much better and his emotional reactivity will not resolve with longer stay on inpatient unit. Rather it requires consistent outpatient therapy with which he says he is ready to engage. Patient is not in imminent risk for harm to self or others and request for discharge honored. Time spent discussing smoking cessation with patient: 3 to 10 minutes Status at Discharge Functional status at discharge: independent ambulation Overall status at discharge: patient is back to baseline Time Spent with Patient Time attestation: Total time managing care of this patient today _40___ minutes. Time spent: Greater than 30 minutes Discharge Plan Discharge Anticipated Discharge Date/Time: 06/14/23 11:30 Patient Disposition: Home, Self-Care Discharge Diagnosis: schizophrenia Referrals: Therapy & Psychiatry Referral: [facility] [Other] - 1 Week ([facility] [place] manager will call you once the appointments are obtained; please keep your phone near you and expect a call later Saturday or on Saturday, 06/16) Elisabet Montoya MD [Physician] - 06/20/23 10:00 am (in office in [place]) Discharge Medications: New nicotine (polacrilex) 4 mg gum 4 mg buccal Q2H PRN (Reason: nicotine cravings) 30 Days Qty: 100 0RF clonidine HCl 0.1 mg Tablet 0.1 mg PO Q4H PRN (Reason: anxiety) 30 Days Qty: 90 1RF Protocol: Hold for SBP< HOLD for SBP < : 90 olanzapine 10 mg Tablet 10 mg PO BEDTIME 30 Days Qty: 30 1RF trazodone 50 mg Tablet 50 mg PO BEDTIME PRN (Reason: Insomnia) 30 Days Qty: 30 1RF Discharge Orders: Discharge Order (Routine); Ordered 06/14/23 Ordered By: Ronald Roy Diet: Regular diet Activity on Discharge: As tolerated Stand Alone Forms: Patient Portal Discharge page, Community Support Print Language: Comoran Care Plan Goals: Maintain mood and safe behaviors Take medications as prescribed Continue to pursue sobriety Practice coping skills Continue with outpatient providers and reach out to them as needed Health Concerns: Mood stability and behaviors Sobriety Chronic back pain Plan of Treatment: Follow up with your PCP, psychiatric provider and other outpatient providers regarding above concerns Take medications as prescribed Assessment: Risk assessment at time of discharge:? Patient was interviewed prior to discharge and found to be fully oriented and without any SI or HI. Patient has improved insight and judgment and wants to continue treatment. Patient is not in imminent risk of harm to self or others and has a safety plan that includes presenting to the closest ER or calling 911 if feeling unsafe.? Patient has been observed closely by nursing and unit staff throughout admission; patient has not engaged in any behaviors that suggest dangerousness to self or others and has demonstrated appropriate behaviors and impulse control Discharge Date/Time: 06/14/23 10:38
[2023-06-14 09:00] VITALS: BP 121/61; PULSE 69; RESP 18; TEMP 36.4; O2SAT 98
[2023-06-14] MEDS: cloNIDine HCL 0.1 MG TABLET PO (09:07)
[2023-06-14] MEDS: OLANZapine 5 MG TABLET PO (09:07)
[2023-06-14] MEDS: Nicotine Polacrilex 2 MG GUM 4 MG BUCCAL (09:07)
--- NOTE | 2023-06-14 11:17 | MHC.RECOVRN ---
Met with pt on M5 prior to discharge after Addiction Medicine consult placed for street drugs. Pt looking forward to discharge, awake, alert, easily engages in conversation. Pt immediately states I don't do drugs. Upon further discussion, pt reports buying Percocet for chronic sciatica. Pt reports one pill will last about a week, pt reports he crushes it and does 2 dabs PO prn. Pt reports he was informed the substance is actually fentanyl upon admission, had believed it to be Percocet prior. Pt reports he has worked with [facility] regarding sciatica and needs referral from PCP for PT. Denies history of overdose. Pt reports his substance of choice had been cocaine, has not used in 5 years. Discussed risk of overdose and harm reduction, informed pt that fentanyl can also be present in cocaine. Pt states Im never doing coke again. Provided pt with written resources, fentanyl test strips, as well as t/w contact information if needed. Denies questions or concerns for t/w at this time.
== END 2023-06-14 10:38 | disposition home or self-care (01) | DRG 750 ==
LOC: HO.ED 14:47 → HO.PM5 06-11 12:26
PROVIDERS: Clinical Nurse Specialist Psychiatric/Mental Health, Adult; Physician Assistant Medical; Psychiatry & Neurology Psychiatry; Admitting Provider Psychiatry & Neurology Psychiatry; Emergency Provider Emergency Medicine; Visit Provider Psychiatry & Neurology Psychiatry
DX: F20.9 Schizophrenia, unspecified (principal); F17.210 Nicotine dependence, cigarettes, uncomplicated; F43.10 Post-traumatic stress disorder, unspecified; Z71.6 Tobacco abuse counseling; Z20.822 Contact with and (suspected) exposure to COVID-19
CPT/HCPCS: 0241U; 36415; 80053; 80061; 80143; 80156; 80179; 80307; 81003; 82607; 82746; 83036; 83540; 83735; 84439; 84443; 85025; 87635; 93005; 99285; S9485

== ENCOUNTER → 2023-06-11 07:35 | Outpatient (BNV) | payer MEDICAID, SELFPAY | PROVIDERS: Admitting Provider Psychiatry & Neurology Psychiatry; Emergency Provider Emergency Medicine; Visit Provider Internal Medicine Cardiovascular Disease | DX: R94.31 Abnormal electrocardiogram [ECG] [EKG] (principal); F31.9 Bipolar disorder, unspecified | CPT/HCPCS: 93010 ==

== ENCOUNTER → 2023-06-11 12:19 | Outpatient (BNV) | payer OTHER, SELFPAY | PROVIDERS: Admitting Provider Psychiatry & Neurology Psychiatry; Emergency Provider Emergency Medicine; Visit Provider Nurse Practitioner Psychiatric/Mental Health | DX: F20.0 Paranoid schizophrenia (principal); F43.11 Post-traumatic stress disorder, acute | CPT/HCPCS: 99232; 99499 ==

== ENCOUNTER 2023-06-20 11:24 | Outpatient (REF) | payer OTHER, SELFPAY ==
[2023-06-20 14:09] LABS: MANUAL DIFF FLAG NO
[2023-06-20 14:11] LABS: Basophils Absolute Auto 0.1 X10*3/uL (0.0-0.2); Basophils Percent Auto 0.7 % (0-2); Eosinophils Absolute Auto 0.1 X10*3/uL (0.0-0.4); Eosinophils Percent Auto 0.8 % (0-4); Hematocrit 36.6 % (42.0-52.0); Hemoglobin 12.4 g/dl (14.0-18.0); Imm Gran Abs Auto 0.02 X10*3/uL (0.00-0.03); Imm Gran Pct Auto 0.3 % (0.0-0.4); Lymphocytes Absolute Auto 2.1 X10*3/uL (1.2-4.9); Mean Corpuscular HGB Conc 33.9 g/dl (31.0-36.0); Mean Corpuscular Hemoglobin 30.8 pg (27.0-33.0); Mean Corpuscular Volume 90.8 fL (80.0-98.0); Mean Platelet Volume 9.4 fL (9.4-12.4); Monocytes Absolute Auto 0.6 X10*3/uL (0.1-1.2); Monocytes Percent Auto 8.2 % (2-11); Neutrophils Absolute Auto 4.4 x10*3/uL (2.0-8.3); Platelet Count 293 X10*3/uL (160-400); Red Blood Count 4.03 X10*6/uL (4.60-5.80); Red Cell Distribution Width 13.2 % (11.0-16.0); White Blood Count 7.2 X10*3/uL (4.8-10.8)
[2023-06-20 14:29] LABS: Alanine Aminotransferase 16 U/L (0-40); Albumin Level 3.9 g/dL (3.5-5.0); Alkaline Phosphatase 67 U/L (39-117); Anion Gap 8 (12-20); Aspartate Amino Transferase 21 U/L (5-37); Bilirubin Total 0.3 mg/dL (0.0-1.0); Blood Urea Nitrogen 7 mg/dL (9-16); Carbon Dioxide 27 mmol/L (22-29); Chloride 110 mmol/L (96-108); Cholesterol 135 mg/dL (<200); Estimated Glomerular Filt Rate > 60; Glucose Fasting 77 mg/dL (60-99); HDL Cholesterol 56 mg/dL (>40); LDL Cholesterol Calculated 71 mg/dL (<100); Potassium 4.2 mmol/L (3.3-5.1); Sodium 141 mmol/L (135-145); Total Protein 6.5 g/dL (6.5-8.0); Triglycerides 44 mg/dL (<150)
[2023-06-20 14:46] LABS: TSH reflex Free T4 0.36 uIU/mL (0.32-4.0)
[2023-06-21 08:15] LABS: ~Hepatitis C Antibody Nonreactive (Nonreactive)
== END 2023-06-20 11:25 | disposition home or self-care (01) ==
LOC: HO.CHCLDS 11:24
PROVIDERS: Visit Provider Internal Medicine
DX: M54.42 Lumbago with sciatica, left side (principal); G89.29 Other chronic pain; F17.200 Nicotine dependence, unspecified, uncomplicated; F39 Unspecified mood [affective] disorder; Z91.89 Other specified personal risk factors, not elsewhere classified
CPT/HCPCS: 36415; 80053; 80061; 84443; 85025; 86803

== ENCOUNTER 2023-10-30 11:27 | Outpatient (REF) | payer OTHER, SELFPAY ==
[2023-10-30 14:27] LABS: MANUAL DIFF FLAG NO
[2023-10-30 14:30] LABS: Basophils Percent Auto 0.6 % (0-2); Eosinophils Absolute Auto 0.1 X10*3/uL (0.0-0.4); Eosinophils Percent Auto 1.6 % (0-4); Hematocrit 42.3 % (42.0-52.0); Hemoglobin 14.2 g/dl (14.0-18.0); Imm Gran Abs Auto 0.02 X10*3/uL (0.00-0.03); Imm Gran Pct Auto 0.3 % (0.0-0.4); Lymphocytes Percent Auto 31.7 % (20-40); Mean Corpuscular HGB Conc 33.6 g/dl (31.0-36.0); Mean Corpuscular Hemoglobin 29.9 pg (27.0-33.0); Mean Corpuscular Volume 89.1 fL (80.0-98.0); Mean Platelet Volume 9.6 fL (9.4-12.4); Monocytes Absolute Auto 0.7 X10*3/uL (0.1-1.2); Monocytes Percent Auto 10.2 % (2-11); Neutrophils Absolute Auto 3.5 x10*3/uL (2.0-8.3); Neutrophils Percent Auto 55.6 % (45-73); Platelet Count 270 X10*3/uL (160-400); Red Blood Count 4.75 X10*6/uL (4.60-5.80); Red Cell Distribution Width 14.3 % (11.0-16.0); Retic HGB Equivalent 34.1 pg (30.0-35.0); Reticulocyte Percent 0.9 % (0.5-1.8); Reticulocytes Absolute 0.041 X10*6/uL (0.026-0.095); White Blood Count 6.4 X10*3/uL (4.8-10.8)
[2023-10-30 14:56] LABS: Alanine Aminotransferase 20 U/L (0-40); Alkaline Phosphatase 66 U/L (39-117); Anion Gap 11 (12-20); Aspartate Amino Transferase 21 U/L (5-37); Bilirubin Total 0.3 mg/dL (0.0-1.0); Blood Urea Nitrogen 8 mg/dL (9-16); Calcium 8.8 mg/dL (8.4-10.2); Carbon Dioxide 28 mmol/L (22-29); Chloride 106 mmol/L (96-108); Cholesterol 204 mg/dL (<200); Estimated Glomerular Filt Rate > 60; Glucose Random 75 mg/dL (60-115); HDL Cholesterol 49 mg/dL (>40); Iron 59 mcg/dL (45-160); LDL Cholesterol Calculated 132 mg/dL (<100); Percent Iron Saturation 23 % (15-50); Potassium 3.9 mmol/L (3.3-5.1); Sodium 141 mmol/L (135-145); Total Iron Binding Capacity 261 mcg/dL (228-428); Total Protein 6.7 g/dL (6.5-8.0); Triglycerides 117 mg/dL (<150); Unsaturated Iron Binding 202 ug/dL
[2023-10-30 15:15] LABS: Ferritin 19 ng/mL (20-250); TSH reflex Free T4 0.55 uIU/mL (0.32-4.0)
[2023-10-31 05:14] LABS: ~Hepatitis C Antibody Nonreactive (Nonreactive)
== END 2023-10-30 11:28 | disposition home or self-care (01) ==
LOC: HO.CHCLDS 11:27
PROVIDERS: Visit Provider Internal Medicine
DX: M54.42 Lumbago with sciatica, left side (principal); F39 Unspecified mood [affective] disorder; D50.9 Iron deficiency anemia, unspecified; G89.29 Other chronic pain; Z91.89 Other specified personal risk factors, not elsewhere classified; F17.200 Nicotine dependence, unspecified, uncomplicated
CPT/HCPCS: 36415; 80053; 80061; 82728; 83540; 84443; 85025; 85045; 86803

== ENCOUNTER 2024-12-17 14:26 | Outpatient (REF) | payer OTHER, SELFPAY ==
--- OUTSIDE RECORDS SUMMARY | 2024-12-17 13:45 | XMS_ITS | Encounter Summary ---
Author Organization [employer] Address [address] [place] [address] Care Team Providers Care Alberene Stone Setter Name Role Phone Elisabet Montoya MD Primary Care Provider [phone] Encounter Details Date Type Department Care Team ([facility] st Contact Info) Description 12/17/2024 1:45 PM EDT Office Visit [facility] [address] [place], [place] [id number] Elisabet Montoya MD [address] [place] [address] Acute cough (Primary Dx); Hydradenitis; Smoking addiction Social History Tobacco Use Types Packs/Day Years Used Date Smoking Tobacco: Every Day Cigarettes Smokeless Tobacco: Former Depression Answer Date Recorded Patient Health Questionnaire-9 Score 12 10/30/2023 Patient Health Questionnaire-9 Score 12 10/30/2023 Last PHQ-9: Questionnaire Data Not on file 0 10/30/2023 Housing Stability Answer Date Recorded What is your housing situation today? I have danny david 06/20/[address] you li ve. Do you have problems with any of the following? None of the above 06/20/2023 Food Insecurity Answer Date Recorded Within the past 12 months, y ou worried that your food would run out before you got money to buy more: Never True 06/20/2023 Within the past 12 months,th e food you bought just didn't last and you didn't have enough money to get more: Never True 06/2023 Transportation Answer Date Recorded In the past 12 months, has l ack of transportation kept you from medical appts, meetings, work or from getting things needed for daily living? No 06/20/2023 Utilities Answer Date Recorded In the past 12 months, has t he electric, gas, oil or water company threatened to shut off services in your home? No 06/20/2023 Depression Answer Date Recorded Patient Health Questionnaire-2 Score 4 10/30/2023 Sex and Gender Information Value Date Recorded Sex Assigned at Male 01/15/2022 10:34 AM EDT Legal Sex Male 10:34 AM EDT Gender Identity Male 01/15/2022 10:34 AM EDT Sexual Orientation Don't know 01/15/2022 10 :34 AM EDT documented as of this encounter Last Filed Vital Signs Vital Sign Reading Time Taken Comments Blood Pressure 132/81 12/17/2024 1:34 PM EDT Pulse 91 12/17/2024 1:34 PM EDT Temperature - - Respiratory Rate 20 12/17/2024 1:34 PM EDT Oxygen Saturation 98% 12/17/2024 1:34 PM EDT Inhaled Oxygen Concentration - - Weight 66.7 kg (147 lb) 12/17/2024 1:34 PM EDT Height 173.4 cm (5' 8.25 ) 12/17/2024 1:34 PM ED T Body Mass Index 22.19 12/17/2024 1:34 PM EDT documented in this encounter Plan of Treatment Upcoming Encounters Date Type Department Care Team (Late st Contact Info) Description 02/15/2025 2:45 PM EST Office Visit [facility] [address] [place] [address] Elisabet Montoya MD [address] [place] [address] Scheduled Orders Name Type Priority Associated Diagnoses Orde r Schedule XR Chest 2 Views Imaging Routine Acute cough Expected: 12/17/2024, Expires: 12/17/2025 CBC auto differential Lab Routine Acute cough Expected: 12/17/2024 (Approximate), Expires: 12/17/2025 T-SPOT .TB Lab Routine Acute cough Expected: 12/17/2024 (Approximate), Expires: 12/17/2025 Basic Metabolic Panel Lab Routine Acute cough Expected: 12/17/2024 (Approximate), Expires: 12/17/2025 C-reactive Protein Lab Routine Acute cough Expected: 12/17/2024 (Approximate), Expires: 12/17/2025 Sed Rate by Modified [place] Lab Routine Acute cough Expected: 12/17/2024, Expires: 12/17/2025 documented as of this encounter Visit Diagnoses Diagnosis Acute cough- Primary Hydradenitis Hidradenitis Smoking addiction documented in this encounter Additional Health Concerns Assessment Noted Time PHQ-9 Depression Total Score: 12 024 11:18 AM EDT documented as of this encounter Care Teams Alberene Stone Setter Relationship Specialty Start Date End Date Elisabet Montoya MD [address] [place] [id number] PCP - General Internal Medicine 06/20/23 documented as of this encounter
--- OUTSIDE RECORDS SUMMARY | 2024-12-17 16:03 | XMS_ITS | Encounter Summary ---
Author Organization [employer] Address [address] [place] [address] Care Team Providers Care Heating Mechanic Name Role Phone Elisabet Montoya MD Primary Care Provider [phone] Reason for Visit * Reason Onset Date Comments Nurse Triage 12/16/2024 Encounter Details Date Type Department Care Team ([facility] st Contact Info) Description 12/16/2024 Telephone [facility] [address] [place] [address] Elisabet Montoya MD [address] [place] [address] Nurse Triage Social History Tobacco Use Types Packs/Day Years [...] AM EDT documented as of this encounter Miscellaneous Notes * Telephone Encounter - Dennise Rabago LPN - 12/16/2024 3:00 PM EDT Triage call returned to efrain who reports that he had been sick with initially rib pain after stretching felt as if he pulled a muscle in left rib area. Then got better and then had pain again with increased cough and hiccups. Had bloody sputum for three days. Did not seek ED evaluation. Took OTC cough syrup and today overall feels better but has persistent cough. No fever and no phlegm. Smokes cigarettes. Disposition reviewed and patient in agreement with plan. ASK/PCP tomorrow at1:45pm.Protocol Used: Cough (Adult) Protocol-Based Disposition: See in Office or Video Visit Today or Tomorrow Video visit not offered Positive Triage Question: * Patient wants to be seen * All higher-acuity triage questions were negative Care Advice Discussed: * Cough Medicines * Cough Syrup With Dextromethorphan * Prevent Dehydration * Avoid Tobacco Smoke * Reasons To Call Back - Difficulty breathing - You become worse * Telephone Encounter - Crisitn Willingham - 12/16/2024 2:51 PM EDT Symptom: Chest Congestion Outcome: Schedule an appointment to be seen within 24 hours Reason: Caller denied all higher acuity questions The caller accepted this outcome. Contact pt at [phone] documented in this encounter Plan of Treatment Upcoming Encounters Date Type Department Care Team (Late st Contact Info) Description 02/15/2025 2:45 PM EST Office Visit [facility] [address] [place] [address] Elisabet Montoya MD [address] [place] [address] documented as of this encounter Visit Diagnoses Not on filedocumented in this encounter Additional Health Concerns Assessment Noted Time PHQ-9 Depression Total Score: 12 024 11:18 AM EDT documented as of this encounter Care Teams Heating Mechanic Relationship Specialty Start Date End Date Elisabet Montoya MD [address] [place] [address] PCP - General Internal Medicine 06/20/23 documented as of this encounter
--- OUTSIDE RECORDS SUMMARY | 2024-12-17 16:03 | XMS_ITS | Encounter Summary ---
Author Organization [employer] Address [address] [facility] [address] [place] [address] Care Team Providers Care Academic Support Coordinator Name Role Phone Elisabet Montoya MD Primary Care Provider [phone] Encounter Details Date Type Department Care Team (Late st Contact Info) Description 11/01/2023 Orders Only [facility] MED & PEDS [address] [place], [place] [phone] Elisabet Montoya MD [address] [place] [address] Iron deficiency (Primary Dx); Hypercholesterolemia Social History Tobacco Use Types Packs/Day Years Used Date Smoking Tobacco: Every Day Cigarettes Smokeless Tobacco: Former Depression Answer Date Recorded Patient Health Questionnaire-9 Score 12 10/30/2023 Patient Health Questionnaire-9 Score 12 10/30/2023 Last PHQ-9: Questionnaire Data Not on file 0 10/30/2023 Housing Stability Answer Date Recorded What is your housing situation today? I have dannycecy david 06/20/[address] you [...] AM EDT documented as of this encounter Plan of Treatment Upcoming Encounters Date Type Department Care Team (Late st Contact Info) Description 02/15/2025 2:45 PM EST Office Visit [facility] CH[facility] MED & PEDS [address] [place] [address] Elisabet Montoya MD [address] [place] [address] Scheduled Orders Name Type Priority Associated Diagnoses Orde r Schedule CBC auto differential Lab Routine Iron deficiency Expected: 11/01/2023 (Approximate), Expires: 10/31/2024 Ferritin Lab Routine Iron deficiency Expected: 11/01/2023, Expires: 10/31/2024 Lipid Panel, Standard Lab Routine Hypercholesterolemia Expected: 11/01/2023 (Approximate), Expires: 10/31/2024 documented as of this encounter Visit Diagnoses Diagnosis Iron deficiency- Primary Disorders of iron metabolism Hypercholesterolemia Pure hypercholesterolemia documented in this encounter Additional Health Concerns Assessment Noted Time PHQ-9 Depression Total Score: 12 024 11:18 AM EDT documented as of this encounter Care Teams Academic Support Coordinator Relationship Specialty Start Date End Date Elisabet Montoya MD [address] [place] [address] PCP - General Internal Medicine 06/20/23 documented as of this encounter
--- OUTSIDE RECORDS SUMMARY | 2024-12-17 16:03 | XMS_ITS | Clinical Summary ---
Author Organization [email or web address] Address [address] [facility] 7[address] [place] [address] Care Team Providers Care Cylindrical Mixer Name Role Phone Elisabet Montoya MD Primary Care Provider [phone] Allergies No known active allergies Medications * This document contains information received from the source organization and may not represent a complete record from that organization. nicotine polacrilex (Nicorette) 4 MG gum CHEW 1 GUM EVERY 2 HOURS NEEDED FOR CRAVINGS. 4 Active OLANZapine (ZyPREXA) 10 MG tablet Take 1 tablet by mouth at bedtime. 4 Active traZODone (Desyrel) 50 MG tablet Take 1 tablet by mouth if needed at bedtime for sleep. 4 Active cloNIDine (Catapres) 0.1 MG tabletIndicatio ns:Mood disorder (CMS/HCC) Take 1 tablet (0.1 mg) by mouth 2 times daily. 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 Take with a full glass of water and do not lie down for at least 30 minutes after. 60 tablet 5 01/17/20 25 Active celecoxib (CeleBREX) 200 MG capsuleIndicati ons:Acute cough Take 1 capsule (200 mg) by mouth 2 times daily. 60 capsule 5 01/17/20 25 Active guaiFENesin-dex tromethorphan (Robitussin DM) 100-10 MG/5ML syrupIndication s:Acute cough Take 5 mL by mouth every 4 (four) hours if needed for cough for up to 10 days. 118 mL 5 12/28/19 25 Active Active Problems No known active problems Encounters Date Type Department Care Team Description 12/17/2024 1:45 PM EDT Office Visit [facility] MED & PEDS [address] [place] [address] Elisabet Montoya MD Acute cough (Primary Dx); Hydradenitis; Smoking addiction 12/17/2024 Travel 12/16/2024 Telephone [facility] MED & PEDS [address] [place] [address] Elisabet Montoya MD Nurse Triage from Last 3 Months Family History Medical History Relation Name Comments Alcohol abuse Father Fibromyalgia Mother Relation Name Status Comments Father Mother Social History Tobacco Use Types Packs/Day Years Used Date Smoking Tobacco: Every Day Cigarettes Smokeless Tobacco: Former Tobacco Cessation:Ready to Q uit: Not Asked; Counseling Given: Not Answered Depression Answer Date Recorded Patient Health Questionnaire-9 [...] the past 12 months, has t he [employer], [employer], oil or water company threatened to shut off services in your home? No 06/20/2023 Depression Answer Date Recorded Patient Health Questionnaire-2 Score 4 10/30/2023 Sex and Gender Information Value Date Recorded Sex Assigned at Male 01/15/2022 10:34 AM EDT Legal Sex Male 10:34 AM EDT Gender Identity Male 01/15/2022 10:34 AM EDT Sexual Orientation Don't know 01/15/2022 10 :34 AM EDT Last Filed Vital Signs Vital Sign Reading Time Taken Comments Blood Pressure 132/81 12/17/2024 1:34 PM EDT Pulse 91 12/17/2024 1:34 PM EDT Temperature 36.2 C (97.2 F) 10/30/2023 10:54 AM EDT Respiratory Rate 20 12/17/2024 1:34 PM EDT Oxygen Saturation 98% 12/17/2024 1:34 PM EDT Inhaled Oxygen Concentration - - Weight 66.7 kg (147 lb) 12/17/2024 1:34 PM EDT Height 173.4 cm (5' 8.25 ) 12/17/2024 1:34 PM ED T Body Mass Index 22.19 12/17/2024 1:34 PM EDT Plan of Treatment Upcoming Encounters Date Type Department Care Team (Late st Contact Info) Description 02/15/2025 2:45 PM EST Office Visit [facility] CHC MED & PEDS [address] [place] [address] Elisabet Montoya MD [address] [place], [place] [phone] Health Maintenance Due Date Last Done Comments CT Colonography 1977 Colonoscopy 1977 FIT 1977 Sigmoidoscopy 1977 Disability Screening 1977 Alcohol/Substance Use Screening 1989 Family Planning (PISQ) 1992 DTaP/Tdap/Td Vaccines (1 - Tdap) 1996 Hepatitis B Vaccines (1 of 3 - 19+ 3-dose series) 1996 Pneumococcal Vaccine: Pediatrics (0 to 5 Years) and At-Risk Patients (6 to 49) Years (1 of 2 - PCV) 1996 Depression Monitoring 05/01/2024 10/30/2023 , 10/30/2023 SDOH Screening 06/19/2024 06/20/2023 FOBT 08/08/2024 08/09/2023 COVID-19 Vaccine (1 - 2023-2 5 season) 2024 Influenza Vaccine (#1) 2024 Tobacco Screening 12/17/2025 12/17/2024 Colorectal Cancer Screening 08/08/2026 FIT DNA/Cologuard 08/08/2026 08/09/2023 Zoster Vaccines (1 of 2) 06/19/2027 Lipid Panel 10/29/2028 10/30/2023, 06/20/2023 RSV Patients and Patients Aged 60 years or older (1 - 1-dose 75+ series) 2052 Hepatitis C Screening Completed 10/30/2023 , 06/20/2023 HIB Vaccines Aged Out No longer eligi ble based on patient's age to complete this topic HIV Screening Discontinued HPV Vaccines Aged Out No longer eligi ble based on patient's age to complete this topic Hepatitis A Vaccines Aged Out No long er eligible based on patient's age to complete this topic IPV Vaccines Aged Out No longer eligi ble based on patient's age to complete this topic Meningococcal B Vaccine Aged Out No l onger eligible based on patient's age to complete this topic Meningococcal Vaccine Aged Out No canelo shyla eligible based on patient's age to complete this topic RSV under 20 months Aged Out No longe r eligible based on patient's age to complete this topic Rotavirus Vaccines Aged Out No longer eligible based on patient's age to complete this topic Procedures Procedure Name Priority Date/Time Associated Diagnosis Comments HEPATITIS C ANTIBODY Routine 10/30/2023 11:30 AM EDT Schizophrenia, unspecified type (CMS/HCC) LIPID PANEL, STANDARD Routine 10/30/2023 11:30 AM EDT Schizophrenia, unspecified type (CMS/HCC) LAB COLOGUARD COLON CANCER SCREEN Routine 08/09/2023 11:00 AM EDT Screening for colon cancer from Last 3 Months or Most Recently Relevant to Health Maintenance Results * Hepatitis C Ab (10/30/2023 11:30 AM EDT) Hepatitis C Antibody Nonreactive Nonreactive [facility] Comment:Antibodies to HCV no t detected; does not exclude early acuteHCV infection. 10/30/2023 11:3 0 AM EDT 10/30/2023 2:20 PM EDT us Elisabet Montoya MD LAB BLOOD ORDERABLES Final Result Performing Organization Address [facility] de Phone Number [facility] [address] [place] [phone] * (ABNORMAL) Lipid Panel, Standard (10/30/2023 11:30 AM EDT) Triglycerides 117 <150 mg/dL [facility] Comment:Desirable Triglyceri de: less than 150 mg/dLBorderline High Triglyceride 150-199 mg/dLHigh Triglyceride: 200-499 mg/dLVery High Triglyceride: greater than or equal to 5OO mg/dL Cholesterol 204(H) <200 mg/dL [facility] Comment:Desirable Cholestero l: less than 200 mg/dLBorderline High Cholesterol: 200-239 mg/dLHigh Cholesterol: greater than 239 mg/dL LDL Cholesterol Calculated 132(H) <100 mg/dL [facility] Comment:Desirable LDL: less than 100 mg/dLNear Optimal/Above Optimal LDL: 110- 129 mg/dLBorderline High LDL: 130-159 mg/dLHigh LDL: 160-189 mg/dLVery High LDL: greater than or equal to 190 mg/dL HDL Cholesterol 49 >40 mg/dL [facility] Comment:Desirable HDL: great er than 40 mg/dL Note: This HDL assay may give artificially low results in patients with liver disease. 10/30/2023 11:3 0 AM EDT 10/30/2023 2:20 PM EDT us Elisabet Montoya MD LAB BLOOD ORDERABLES Final Result Performing Organization Address [facility] Co de Phone Number [facility] [address] [place] [phone] * Cologuard?? colon cancer screening (08/09/2023 11:00 AM EDT) [facility] Signature Cologuard Result Negative Negative 08/16/19 1:13 PM EDT [facility] (CLIA #:[id number]) Comment: NEGATIVE TEST RESULT. A negative Cologuard result indicates a low likelihood that a colorectal cancer (CRC) or advanced adenoma (adenomatous polyps with more advanced pre-malignant features) is present. The chance that a person with a negative Cologuard test has a colorectal cancer is less than 1 in 1500 (negative predictive value >99.9%) or has an advanced adenoma is less than 5.3% (negative predictive value 94.7%). These data are based on a prospective cross-sectional study of 10,000 individuals at average risk for colorectal cancer who were screened with both Cologuard and colonoscopy. (Noel Oquendo et al, N Engl J Med 2014;370(14):9737-6328) The normal value (reference range) for this assay is negative. COLOGUARD RE-SCREENING RECOMMENDATION: Periodic colorectal cancer screening is an important part of preventive healthcare for asymptomatic individuals at average risk for colorectal cancer. Following a negative Cologuard result, the [place] Cancer Society and U.S. Multi-Society Task Force screening guidelines recommend a Cologuard re-screening interval of 3 years. References: [place] [employer] Guideline for Colorectal Cancer Screening: https://www.cancer.org/cancer/iiimz-nnolou-tphdlt/uiwdsqhlw-okwroerti-bvseyry/ac s-rec ommendations.html.; Luis MENDOZA, Emily MCLEAN, Moni CummingsK, Colorectal Cancer Screening: Recommendations for Physicians and Patients from the U.S. Multi-Society Task Force on Colorectal Cancer Screening , Am J Gastroenterology 2017; 112:6711-5286. TEST DESCRIPTION: Composite algorithmic analysis of stool DNA-biomarkers with hemoglobin immunoassay. Quantitative values of individual biomarkers are not reportable and are not associated with individual biomarker result reference ranges. Cologuard is intended for colorectal cancer screening of adults of either sex, 45 years or older, who are at average-risk for colorectal cancer (CRC). Cologuard has been approved for use by the U.S. FDA. The performance of Cologuard was established in a cross sectional study of average-risk adults aged 50-84. Cologuard performance in patients ages 45 to 49 years was estimated by sub-group analysis of near-age groups. Colonoscopies performed for a positive result may find as the most clinically significant lesion: colorectal cancer [4.0%], advanced adenoma (including sessile serrated polyps greater than or equal to 1cm diameter) [20%] or non- advanced adenoma [31%]; or no colorectal neoplasia [45%]. These estimates are derived from a prospective cross-sectional screening study of 10,000 individuals at average risk for colorectal cancer who were screened with both Cologuard and colonoscopy. (Noel Malcolm al, N Engl J Med 2014;370(14):1053-9008.) Cologuard may produce a false negative or false positive result (no colorectal cancer or precancerous polyp present at colonoscopy follow up). A negative Cologuard test result does not guarantee the absence of CRC or advanced adenoma (pre-cancer). The current Cologuard screening interval is every 3 years. ([place] Cancer Society and U.S. Multi-Society Task Force). Cologuard performance data in a 10,000 patient pivotal study using colonoscopy as the reference method can be accessed at the following location: www.[employer]/results. Additional description of the Cologuard test process, warnings and precautions can be found at www.[employer].com. Stool specimen (specimen) 08/09/2023 11:00 AM EDT 08/10/2023 1:06 PM EDT us Elisabet Montoya MD LAB MOLECULAR DIAGNOSTICS O RDERABLES Final Result [facility] (CLIA #:[id number]) [address] [place] [address], from Last 3 Months or Most Recently Relevant to Health Maintenance Insurance [facility] C3 HSN FULL Care Teams Cylindrical Mixer Relationship Specialty Start Date End Date Elisabet Montoya MD [address] [place] [address] [place] [phone] PCP - General Internal Medicine 06/20/23
--- OUTSIDE RECORDS SUMMARY | 2024-12-17 16:03 | XMS_ITS | Encounter Summary ---
Author Organization [employer] Address [address] [place] [address] [address] [place] [address] Care Team Providers Care Java Swing Developer Name Role Phone Elisabet Montoya MD Primary Care Provider [phone] Reason for Visit * Reason Onset Date Comments New Patient 12/20/2022 Encounter Details Date Type Department Care Team (Late Contact Info) Description 12/20/2022 Telephone [facility] MEDICINE [address] [place] [address] Hesham Power MD [address] [place] [address] New Patient Social History Tobacco Use Types Packs/Day Years Used Date Smoking Tobacco: Never Assessed Sex and Gender Information Value Date Recorded Sex Assigned at Male 01/15/2022 10:34 AM EDT Legal Sex Male 10:34 AM EDT Gender Identity Male 01/15/2022 10:34 AM EDT Sexual Orientation Don't know 01/15/2022 10 :34 AM EDT documented as of this encounter Miscellaneous Notes * Telephone Encounter - Bryce Carballo - 12/20/2022 2:16 PM EDT Tc to pt, To offer Electrical Lineworker appt, Phone number did not ring, narrative writer attempted multiple times. documented in this encounter Plan of Treatment Upcoming Encounters Date Type Department Care Team (Late Contact Info) Description 02/15/2025 2:45 PM EST Office Visit [facility] CHC MED & PEDS [address] [place], [place] [phone] Elisaebt Montoya MD [address] [place] [address] documented as of this encounter Visit Diagnoses Not on filedocumented in this encounter Care Teams Java Swing Developer Relationship Specialty Start Date End Date Elisabet Montoya MD [address] [place] [address] PCP - General Internal Medicine 06/20/23 documented as of this encounter
--- OUTSIDE RECORDS SUMMARY | 2024-12-17 16:03 | XMS_ITS | Encounter Summary ---
Author Organization [employer] Address [address] [facility] [address] [place] [address] Care Team Providers Care Patch Finisher Name Role Phone Elisabet Montoya MD Primary Care Provider [phone] Encounter Details Date Type Department Care Team (Latest Contact Info) Description 12/17/2024 Travel Social History Tobacco Use Types Packs/Day Years Used Date Smoking Tobacco: Every Day Cigarettes Smokeless Tobacco: Former Depression Answer Date Recorded Patient Health Questionnaire-9 Score 12 10/30/2023 Patient Health Questionnaire-9 Score 12 10/30/2023 Last PHQ-9: Questionnaire Data Not on file 0 10/30/2023 Housing Stability Answer Date Recorded What is your housing situation today? I have danny frankie 06/20/[address] you li [...] Description 02/15/2025 2:45 PM EST Office Visit [facility] MED & PEDS [address] [place] [address] Elisabet Montoya MD [address] [place] [address] documented as of this encounter Visit Diagnoses Not on filedocumented in this encounter Additional Health Concerns Assessment Noted Time PHQ-9 Depression Total Score: 12 024 11:18 AM EDT documented as of this encounter Care Teams Patch Finisher Relationship Specialty Start Date End Date Elisabet Mnotoya MD [address] [place] [address] PCP - General Internal Medicine 06/20/23 documented as of this encounter
[2024-12-17 17:42] LABS: MANUAL DIFF FLAG NO
[2024-12-17 17:48] LABS: Hematocrit 38.2 % (42.0-52.0); Hemoglobin 12.7 g/dl (14.0-18.0); Imm Gran Abs Auto 0.04 X10*3/uL (0.00-0.03); Imm Gran Pct Auto 0.4 % (0.0-0.4); Lymphocytes Absolute Auto 1.8 X10*3/uL (1.2-4.9); Mean Corpuscular HGB Conc 33.2 g/dl (31.0-36.0); Mean Corpuscular Hemoglobin 30.5 pg (27.0-33.0); Mean Corpuscular Volume 91.6 fL (80.0-98.0); NRBC Abs Auto 0.000 X10*3/uL (0.0-0.012); NRBC Pct Auto 0.0 /100WBC (0.0-0.2); Platelet Count 458 X10*3/uL (160-400); Red Blood Count 4.17 X10*6/uL (4.60-5.80); White Blood Count 10.3 X10*3/uL (4.8-10.8)
[2024-12-17 18:25] LABS: Anion Gap 11 (12-20); Blood Urea Nitrogen 7 mg/dL (9-16); Calcium 8.7 mg/dL (8.4-10.2); Carbon Dioxide 31 mmol/L (22-29); Chloride 105 mmol/L (96-108); Estimated Glomerular Filt Rate > 60; Potassium 3.8 mmol/L (3.3-5.1); Sodium 143 mmol/L (135-145)
[2024-12-20 02:58] LABS: TS Negative Control Passed; TS Panel A 0; TS Panel B 0; TS Positive Control Passed; TSpotTB Negative (Negative)
== END 2024-12-17 14:27 | disposition home or self-care (01) ==
LOC: HO.CHCLDS 14:26
PROVIDERS: Visit Provider Internal Medicine
DX: Z11.1 Encounter for screening for respiratory tuberculosis (principal); R05.1 Acute cough
CPT/HCPCS: 36415; 80048; 85025; 85652; 86140; 86481